=== PATIENT | female | born 1960 | race Caucasian/White ===

== ENCOUNTER 2017-01-18 11:08 | Inpatient (IN) | payer OTHER ==
[~2017-01-18 11:08] MED LIST: Sodium Citrate/Citric Acid* 15 ML UDC PO ONE
[2017-01-18] MEDS ORDERED: Sodium Citrate/Citric Acid* 15 ML UDC ONE (11:52)
[2017-01-18] MEDS ORDERED: Clindamycin 900 MG IVPREMIX(* 900 MG/50 ML SDV IV ONE (11:52)
[2017-01-18] MEDS ORDERED: Heparin VIAL(*) 5000 UNITS/ML VIAL (FIVE THOUSAND) ONE (11:52)
[2017-01-18] MEDS ORDERED: Buffered Lidocaine 1% SYRIN* 5 ML/SYR SYRINGE ONE (11:53)
[2017-01-18] MEDS ORDERED: DiMENhydriNATE IV* 50 MG/ML VIAL IV PUSH PRN (13:16)
[2017-01-18] MEDS ORDERED: fentaNYL* 50 MCG/ML 2 ML VIAL (100 MCG VIAL) IV PRN (13:16)
[2017-01-18] MEDS ORDERED: Bupivacaine 0.25% SDV* 30 ML ONE (13:25)
[2017-01-18] MEDS ORDERED: fentaNYL* 50 MCG/ML 2 ML VIAL (100 MCG VIAL) ONE ×3 (13:26→18:14)
[2017-01-18] MEDS ORDERED: Lidocaine 1% INJ* 10 MG/ML 30 ML SDV ONE (13:26)
[2017-01-18] MEDS ORDERED: Propofol* 10 MG/ML 20 ML BTL IV PUSH ONE (13:28)
[2017-01-18] MEDS ORDERED: Lidocaine 2% PF * 5 ML VIAL ONE (13:28)
[2017-01-18] MEDS ORDERED: Midazolam* 1 MG/ML 2 ML VIAL (2 MG) ONE ×2 (14:31→15:07)
--- NOTE | 2017-01-18 16:20 | RAD ---
INDICATION: Power port placement. COMPARISON: Comparison is made with a prior chest x-ray study from February 06, 2010. TECHNIQUE: 38 seconds of intermittent fluoroscopic guidance were provided and 3 spot films of the chest were obtained in the operating room. FINDINGS: The films demonstrate placement of a PowerPort central venous catheter. On the last film the catheter tip projects over the region of the superior vena cava. IMPRESSION: INTRAOPERATIVE CONTROL FILMS. CPT II Codes: 6045F
[2017-01-18] MEDS ORDERED: Ondansetron INJ* 2 MG/ML VIAL IV PRN (16:58)
[2017-01-18] MEDS ORDERED: Docusate CAP* 100 MG PO PRN (16:58)
[2017-01-18] MEDS ORDERED: oxyCODONE/Acetamin 5/325 MG* TAB PO PRN (16:58)
[2017-01-18] MEDS ORDERED: Famotidine TAB* 20 MG PO PRN (17:04)
[2017-01-18] MEDS ORDERED: Albuterol HFA INHALER* 8 gm MDI INH PRN (17:04)
--- NOTE | 2017-01-18 17:41 | RAD ---
Indication: PowerPort insertion. Single frontal view of the chest performed at 1730 hours was reviewed. Comparison is made with previous exam dated January 16, 2017. No mediastinal shift is noted. Heart is of normal size and configuration. Lung johnson appear clear. Left-sided PowerPort is in place with the tip in the superior vena cava. No pneumothorax is noted. IMPRESSION: POWERPORT IN APPROPRIATE LOCATION. NO PNEUMOTHORAX IS NOTED.
[2017-01-18] MEDS: Clindamycin 900 MG IVPREMIX(* 900 MG/50 ML SDV IV SCH (20:14)
[2017-01-18] MEDS: Gabapentin CAP(*) 400 MG PO SCH (20:33)
[2017-01-18] MEDS: oxyCODONE/Acetamin 5/325 MG* TAB PO PRN (20:34)
[2017-01-18] MEDS: Mometasone 220 MCG MDI INH SCH (20:35)
[2017-01-18] MEDS ORDERED: Zolpidem TAB* 5 MG PO ONE (22:00)
[2017-01-19] MEDS: Clindamycin 900 MG IVPREMIX(* 900 MG/50 ML SDV IV SCH (02:03)
--- NOTE | 2017-01-19 04:51 | OP ---
[facility]: [facility] OPERATIVE REPORT: DATE OF OPERATION: 01/18/17 DATE OF : 60 SURGEON: Sarah Garcia MD MASSAGE COORDINATOR: NADIA Padilla PRE-OP DIAGNOSIS: Right breast cancer. POST-OP DIAGNOSIS: Right breast cancer. OPERATIVE PROCEDURE: PowerPort placement, right mastectomy, and axillary dissection. INDICATIONS: Ms. 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 She opted for the mastectomy, and completion axillary dissection was planned as well because it was anticipated she would need chemotherapy and plans were made for PowerPort placement as well. DESCRIPTION OF PROCEDURE: She was brought to the operating room, placed on the OR table in the supi ne position, and given general anesthesia. Attention was turned first to placing the PowerPort. Th e left chest was prepped and draped in the usual sterile fashion. Then, after infiltrated with loca l anesthetic using the Seldinger technique, a wire was placed into the left subclavian vein under fl uoroscopic visualization. A port pocket was then created by making an incision on the chest wall af ter infiltrated with local anesthetic and using cautery to create a pocket inferiorly. There was so me bleeding that was controlled with a combination of hemostasis and suture ligature. Once the pock et was of a size to accommodate the port, the catheter was tunneled from the pocket site to the wire exit site and then a dilator and introducer were placed over the wire into the subclavian vein unde r fluoroscopic visualization. Again, the wire and dilator were removed and then the catheter was ad vanced through the introducer into the superior vena cava under fluoroscopic visualization. The int roducer was then peeled away. The catheter was trimmed to an appropriate length and attached to the port. The port was inserted into the pocket and secured to the chest wall with 2-0 Surgipro stitch es. Then, its function was confirmed by flushing with saline and position was checked with fluorosc opy. Closure was accomplished with 3-0 Polysorb in subcutaneous layer and the skin was closed with 4-0 Surgipro in a subcuticular fashion. Again, the function was checked, this time with heparinized saline and found to be adequate. Steri-Strips and a dry sterile dressing were applied. All sponge and instrument counts were correct. Then, attention was turned to the right side. This side was prepped and draped in the usual sterile fashion and then an incision was made on a line that had been marked preoperatively in the superior breast. Subcutaneous tissue was developed with electrocautery to create a flap that extended from the sternum medially to the clavicle superiorly and the latissimus dorsi muscle laterally. Then, an inferior incision was made and then in similar fashion, flaps were developed medially to the sternu m, inferiorly to the rectus muscle, and laterally to the latissimus dorsi muscle. Once this was com plete, the breast was elevated off the chest wall using electrocautery from superior to inferior and medial to lateral until the axillary fat pad was reached and dissection of the axilla was accomplis hed. This was done by sweeping the axillary contents posteriorly from the pectoralis muscle and inf eriorly from the axillary vein. Then, small lymphatic and blood vessels that were encountered were controlled with clips. The long thoracic nerve and thoracodorsal nerve were positively identified d uring the procedure. Once all the contents were swept inferiorly and final attachments were divided , the specimen was removed from the chest wall and marked in the usual fashion and handed off. It s hould be mentioned that hemostasis was obtained with a combination of electrocautery and clips and t hat again the function of the long thoracic and thoracodorsal nerves were confirmed. The wound was irrigated with saline. A IVORY drain was placed under the flaps of the mastectomy site through a stab wound in the anterior axillary line and a second IVORY was placed in the axilla through a stab wound in the middle axillary line. These were secured to the chest wall using 3-0 Surgipro stitches. Closu re of the incision was accomplished with 2-0 Polysorb in the subcutaneous layer of the skin was clos ed with 4-0 Polysorb in a subcuticular fashion. Local was instilled through the anterior drain and then Steri-Strips and dry fluffy dressing were applied and held in place with an Bryce wrap. All spon ge and instrument counts were correct. The patient tolerated the procedure well and was transferred to Recovery in a stable condition. [id number]/[facility] #: [id number]
[2017-01-19] MEDS: Levothyroxine TAB* 75 MCG TAB PO SCH (05:34)
[2017-01-19] MEDS: oxyCODONE/Acetamin 5/325 MG* TAB PO PRN ×4 (05:34→19:44)
[2017-01-19] MEDS: HYDROmorphone* 1 MG/ML 1 ML SYR IV PRN ×3 (08:32→22:09)
--- NOTE | 2017-01-19 08:32 | PN ---
Progress Note - Progress Note Note: Surgery Ms. Powers reports she is having some pain coming back despite pain pills 2 hours ago. Otherwise she denies problems. Vital Signs 01/18/17 01/18/17 01/18/17 12:06 17:05 17:10 Temperature 96.8 F 97.0 F Pulse Rate 88 111 111 Respiratory 16 18 20 Rate Blood Pressure 139/76 135/89 148/83 (mmHg) O2 Sat by Pulse 96 94 94 Oximetry 01/18/17 01/18/17 01/18/17 17:15 17:30 17:45 Temperature Pulse Rate 111 104 101 Respiratory 16 16 14 Rate Blood Pressure 138/78 122/73 119/74 (mmHg) O2 Sat by Pulse 97 93 97 Oximetry 01/18/17 01/18/17 01/18/17 18:00 18:15 18:30 Temperature 97.3 F Pulse Rate 99 100 101 Respiratory 14 14 16 Rate Blood Pressure 118/73 126/74 129/77 (mmHg) O2 Sat by Pulse 96 96 97 Oximetry 01/18/17 01/18/17 01/18/17 18:46 19:11 20:00 Temperature 97.3 F 98.0 F Pulse Rate 99 100 Respiratory 18 17 17 Rate Blood Pressure 127/72 124/78 (mmHg) O2 Sat by Pulse 96 96 Oximetry 01/18/17 01/18/17 01/18/17 20:23 20:33 20:34 Temperature 98.9 F Pulse Rate 103 Respiratory 16 17 17 Rate Blood Pressure 124/74 (mmHg) O2 Sat by Pulse 92 Oximetry 01/18/17 01/18/17 01/18/17 21:08 22:33 22:40 Temperature 98.0 F 98.0 F Pulse Rate 102 100 Respiratory 16 16 17 Rate Blood Pressure 116/67 124/78 (mmHg) O2 Sat by Pulse 94 96 Oximetry 01/18/17 01/19/17 01/19/17 23:52 01:17 03:44 Temperature 97.7 F 98.4 F 97.5 F Pulse Rate 102 102 92 Respiratory 16 16 16 Rate Blood Pressure 137/84 107/64 141/71 (mmHg) O2 Sat by Pulse 93 94 96 Oximetry 01/19/17 05:34 Temperature Pulse Rate Respiratory 17 Rate Blood Pressure (mmHg) O2 Sat by Pulse Oximetry Mastectomy site is clean and dry; no signs infection; flaps viable. JPs: serosanguinous fluid. Intake & Output 01/18/17 01/19/17 01/19/17 22:59 06:59 14:59 Intake Total 3760 2094 Output Total 435 450 Balance 3325 1644 Intake: IV Fluids 3350 684 LR 3000 IVPB 50 50 Oral 360 1360 Output: IVORY #1 145 85 IVORY #2 40 15 Urine 350 [place] 250 Other: Estimated Void Small Medium Estimated Blood Loss 200 Comment # Voids 1 A/P: POD#1 s/p right mastectomy and axillary dissection. Pain control may require more time in the hospital. She will reassess herself after lunch, and decide if she can manage without IV pain meds by then. Sally
[2017-01-19] MEDS: Venlafaxine EXT RELEASE CAP* 75 MG PO SCH (09:40)
[2017-01-19] MEDS: Divalproex DR TAB(*) 500 MG PO SCH (09:41)
[2017-01-19] MEDS: Cetirizine* 10 MG TAB PO SCH (09:41)
[2017-01-19] MEDS: Metoprolol Succinate XL TAB* 50 MG PO SCH (09:41)
[2017-01-19] MEDS ORDERED: oxyCODONE/Acetamin 5/325 MG* TAB PO PRN (15:01)
[2017-01-19] MEDS: Gabapentin CAP(*) 400 MG PO SCH (21:06)
[2017-01-19] MEDS: Mometasone 220 MCG MDI INH SCH (21:07)
[2017-01-20] MEDS: oxyCODONE/Acetamin 5/325 MG* TAB PO PRN ×3 (00:05→09:50)
[2017-01-20] MEDS: HYDROmorphone* 1 MG/ML 1 ML SYR IV PRN (03:20)
[2017-01-20] MEDS: Levothyroxine TAB* 75 MCG TAB PO SCH (07:22)
[2017-01-20 07:57] VITALS: BP 128/84
[2017-01-20] MEDS: Divalproex DR TAB(*) 500 MG PO SCH (08:59)
[2017-01-20] MEDS: Venlafaxine EXT RELEASE CAP* 75 MG PO SCH (09:00)
[2017-01-20] MEDS: Metoprolol Succinate XL TAB* 50 MG PO SCH (09:00)
[2017-01-20] MEDS: Cetirizine* 10 MG TAB PO SCH (09:00)
--- NOTE | 2017-01-20 11:15 | PN ---
Progress Note - Progress Note Note: Robert Ms. Powers reports she feels better, her pain is under control now. She is anxious to go home. She is dressed. Vital Signs 01/19/17 01/19/17 01/19/17 11:26 12:32 13:07 Temperature 97.6 F Pulse Rate 91 Respiratory 16 16 16 Rate Blood Pressure 120/70 (mmHg) O2 Sat by Pulse 93 Oximetry 01/19/17 01/19/17 01/19/17 13:32 15:23 15:28 Temperature 98.0 F Pulse Rate 88 Respiratory 16 16 16 Rate Blood Pressure 133/72 (mmHg) O2 Sat by Pulse 95 Oximetry 01/19/17 01/19/17 01/19/17 16:24 17:23 19:30 Temperature Pulse Rate Respiratory 16 16 Rate Blood Pressure (mmHg) O2 Sat by Pulse 95 Oximetry 01/19/17 01/19/17 01/19/17 19:32 19:44 21:06 Temperature 98.2 F Pulse Rate 84 Respiratory 16 16 16 Rate Blood Pressure 114/69 (mmHg) O2 Sat by Pulse 91 Oximetry 01/19/17 01/19/17 01/19/17 21:44 22:09 23:06 Temperature Pulse Rate Respiratory 16 16 16 Rate Blood Pressure (mmHg) O2 Sat by Pulse Oximetry 01/20/17 01/20/17 01/20/17 00:05 00:07 02:05 Temperature 98.2 F Pulse Rate 102 Respiratory 18 18 16 Rate Blood Pressure 129/78 (mmHg) O2 Sat by Pulse 93 Oximetry 01/20/17 01/20/17 01/20/17 03:10 03:20 05:06 Temperature 98.7 F Pulse Rate 102 Respiratory 16 16 18 Rate Blood Pressure 157/88 (mmHg) O2 Sat by Pulse 92 Oximetry 01/20/17 01/20/17 01/20/17 07:06 07:48 08:00 Temperature 97.9 F Pulse Rate 92 Respiratory 16 18 Rate Blood Pressure 128/84 (mmHg) O2 Sat by Pulse 95 Oximetry 01/20/17 09:50 Temperature Pulse Rate Respiratory 18 Rate Blood Pressure (mmHg) O2 Sat by Pulse Oximetry Power port site: clean and dry Mastectomy: not examined JPs: mainly serous fluid. Intake & Output 01/19/17 01/20/17 01/20/17 22:59 06:59 14:59 Intake Total 960 1240 Output Total 240 1223 332 Balance 720 17 -332 Intake: Oral 960 1240 Output: IVORY #1 180 250 132 IVORY #2 60 23 Urine 500 200 [place] 450 Other: Estimated Void Small Small # Voids 2 A/P: POD#2 s/p right mastectomy and axillary dissection and power port placement. Doing well and can go home and f/u as outpt. CLFoster
--- NOTE | 2017-01-20 16:26 | DS ---
DISCHARGE SUMMARY: DATE OF ADMISSION: 01/19/17 DATE OF DISCHARGE: 01/20/17 ADMISSION DIAGNOSIS: Right breast cancer. DISCHARGE DIAGNOSIS: Right breast cancer. PROCEDURES DURING THE HOSPITALIZATION: Mastectomy done on the day prior to actual admission. She underwent mastectomy and was prepared for an overnight stay, but on first postoperative day, had pain too much for discharge home on oral pain control. She was therefore kept overnight where she could receive IV pain control if needed and over the course of the next 24 hours, improved to the point that she was relying only on oral medications. She was examined during her hospitalization and the mastectomy site was intact as was the PowerPort site. She was therefore considered stable for discharge and was discharged to home with instructions to follow up as an outpatient. [id number]/[facility] #: [id number] XUAN
== END 2017-01-20 12:22 | disposition home or self-care (01) | DRG 362 ==
LOC: OR 11:08 → SSU 16:58 → OBSVTOIN 01-19 15:06
PROVIDERS: ADMIT Surgery; ATTEND Surgery
PROC: 0JH60VZ Insertion of Infusion Pump into Chest Subcutaneous Tissue and Fascia, Open Approach (ICD-10-PCS; 2017-01-18)
PROC: 0HTT0ZZ Resection of Right Breast, Open Approach (ICD-10-PCS; principal; 2017-01-18 13:15)
PROC: 07T50ZZ Resection of Right Axillary Lymphatic, Open Approach (ICD-10-PCS; 2017-01-18 13:15)
DX: C50.411 Malignant neoplasm of upper-outer quadrant of right female breast (principal); F25.9 Schizoaffective disorder, unspecified; I10 Essential (primary) hypertension; G89.18 Other acute postprocedural pain; E03.9 Hypothyroidism, unspecified; F31.9 Bipolar disorder, unspecified; G43.909 Migraine, unspecified, not intractable, without status migrainosus; J45.909 Unspecified asthma, uncomplicated; E78.1 Pure hyperglyceridemia; K21.9 Gastro-esophageal reflux disease without esophagitis; Z79.1 Long term (current) use of non-steroidal anti-inflammatories (NSAID); Z79.899 Other long term (current) drug therapy; Z88.0 Allergy status to penicillin; Z88.2 Allergy status to sulfonamides; Z88.8 Allergy status to other drugs, medicaments and biological substances; Z91.041 Radiographic dye allergy status
CPT/HCPCS: 71010; 88309; 94760; A9270-GY; C1788; G0378; J1170; J1642; J1644; J2001; J2250; J2405; J2704; J3010

== ENCOUNTER 2017-12-20 15:34 | Emergency (ER) | payer OTHER ==
--- OUTSIDE RECORDS SUMMARY | 2017-12-20 16:35 | XMS REPORT ---
:1960 External Reference #:[id number] Author Organization [facility] Address [address] [facility] [address] [place] [address] Phone [phone] Care Team Providers Name Role Phone Breanna Prieto MD Primary Care Physician Unavailable Payers Type Date Identification Numbers Payment Provider Subscriber Commercial Effective: Policy Number: [id number] [employer] Nery Powers 2004 Medicaid PayID: [id number] [address] [address] [place] [address] Problems Date Description Provider Status Onset: 09/10/2011 Gastroesophageal reflux disease Kev Larry M.D. Active Onset: 09/10/2011 Hypothyroidism Kev Larry M.D. Active Onset: 12/25/2011 Pure hyperglyceridemia Kev Larry M.D. Active Onset: 12/25/2011 Allergic rhinitis due to pollen Kev Larry M.D. Active Onset: 05/13/2012 Migraine variants, not intractable Kev Larry M.D. Active Onset: 05/13/2012 Bipolar disorder Breanna Prieto M.D. Active Onset: 05/13/2012 Extrinsic asthma without status Kev Larry M.D. Active asthmaticus Onset: 05/13/2012 Chronic schizoaffective Valeria Saucedo, Active schizophrenia Rosamaria Onset: 05/13/2012 Essential hypertension Kev Larry M.D. Active Onset: 01/07/2014 Menopausal and postmenopausal Bari Penn, Active disorders Rosamaria,FACP Onset: 11/26/2016 Infiltrating duct carcinoma of Breanna Prieto M.D. Active breast Onset: 09/05/2011 Otalgia Landon Sweeney M.D. Inactive Inactive: 01/07/2014 Onset: 09/10/2011 Asthma without status asthmaticus Kev Larry M.D. Inactive Inactive: 01/07/2014 Onset: 12/25/2011 Chest pain Kev Larry M.D. Inactive Inactive: 01/07/2014 Onset: 05/13/2012 Allergic rhinitis Kev Larry M.D. Inactive Inactive: 01/07/2014 Onset: 09/10/2011 Thrombocytopenic disorder Kev Larry M.D. Inactive Inactive: 05/13/2014 Onset: 06/15/2013 Atherosclerosis of arteries of the Mikhail Medardo Pleitez M.D., Inactive extremities FACC, FASNC Inactive: 05/13/2014 Onset: 07/20/2013 Neuralgia Neuritis & Kev Larry M.D. Inactive Radiculitis Unspec Inactive: 05/13/2014 Onset: 09/10/2011 Hyperlipidemia Kev Larry M.D. Inactive Inactive: 01/12/2015 Family History Date Family Member(s) Problem(s) Comments General Breast Cancer General mother probably had breast cancer at age 61 Father Hypertension Father Hypercholesterolemia Mother due to Cancer () First Sister 44 as of 10/28/2009 Social History Type Date Description Comments Marital Status Single Marital Status Significant Other Lives With Alone Occupation Not Currently Working Cigarette Use Never Smoked Cigarettes ETOH Use consumes 1-2 glasses of wine per day ETOH Use Occasionally consumes wine Recreational Drug Use Never Used Drugs Smoking Patient has never smoked Daily Caffeine Consumes on average 1 cup of regular coffee per day Exercise Type/Frequency Does not exercise Currently Active Patient is currently not sexually active Condom Use Occasionally STD's No STD History STD's HSV1 STD's Chlamydia treated many yrs ago in 80's Sexual Hx text 4 partners in last 5 yrs , not sexually active since 2013 Allergies, Adverse Reactions, Alerts Date Description Reaction Status Severity Comments 10/20/2009 Sulfa active 10/20/2009 Penicillins active 10/20/2009 Monistat active 10/20/2009 Prozac active 11/26/2016 Dye active 11/26/2016 Prolixin active Medications Medication Date Status Form Strength Qnty SIG Indications Ordering Provider Triamcinolone 12/06 Active Cream 0.5% 30gm apply twice R21 Altaf Acetonide daily to the JEREMIAS Ernandez affected area Levothyroxine 10/28 Active Tablets 50mcg 60tab 1 by mouth E03.9 Breanna Sodium s every day Rosamaria Prieto Arnuity 10/22 Active Aerosol 200mcg/Ac 30uni once a day Breanna Ellipta t franchesca Prieto M.D. Fexofenadine 12/12 Active Tablets 180mg 90tab take one Breanna HCL s tablet by Conner mouth once M.D. daily as needed for allergies Xanax 12/10 Active Tablets 0.25mg 1tabs take 1 tab Breanna 30 min prior Conner to the M.DRichar procedure Nonce Daily 11/18 Active Tablets 30tab not Breanna /2014 s taking---lizz Rolon One Tablet M.D. By Mouth Once Daily Valacyclovir 01/07 Active Tablets 1gm 21tab Take 1 B00.9 Karen HCL s Tablet By Cotton, Mouth Every M.D. 8 Hours as Needed For 7 Days Ventolin HFA 01/05 Active Aerosol 108(90Bas 8.5un use two Landon E. /2012 e) its inhalations Zahra, mcg/Act by mouth M.D. four times daily as needed Toprol XL 05/13 Active Tablets ER 50mg 90tab take one G43.901 Breanna 24HR s tablet by Prieto, mouth once M.D. daily Depakote ER Active Tablets ER 500mg 28tab 4 tablets by Breanna / 24HR s mouth at hs Rosamaria Prieto Gabapentin Active Tablets 800mg 1 by mouth Unknown /0000 daily Mirtazapine Active Tablets 30mg 1 tab at Bezirgania /0000 night Zelalem gallagher MD Venlafaxine Active Tablets 75mg 3 by mouth Bezirgania HCL /0000 every day Zelalem gallagher MD Biotin Active Capsules 1 by mouth Unknown /0000 every day Remeron Active Tablets 30mg 1 tabs by Unknown /0000 mouth every at bedtime Lysine 00 Active Tablets as needed Unknown /0000 Acetaminophen Active Tablets 325mg 2 tablets by Unknown / mouth every 6 hours as needed for pain/fever Boost High Active Liquid 1-2 a day Unknown Protein Anastrozole Active Tablets 1mg one tab Unknown / daily Calcium + D3 Active Tablets 600-200mg Unknown -Unit Doxycycline 01/25 Hx Capsules 100mg 14cap 1 po bid C50.411 Fransico. Monohydrate /2016 unruly Em M.D. Cephalexin 01/02 Hx Capsules 500mg 21cap 1 by mouth Radha s three times B. a day Eckenrode, PATROL CAPTAIN Hydrocodone 01/02 Hx Tablets 5-300mg 14tab 1 tab by Radha Bitartrate/Bryce s mouth every B. taminophen 6 hours as Eckenrode, needed pain PATROL CAPTAIN Levothyroxine 07/21 Hx Tablets 75mcg 90tab 1 by mouth E03.9 Breanna Sodium /2014 s every day Yuri Prieto M.D. 10/28 Nyamyc 01/13 Hx Powder [id number] 100gm apply to Breanna t/GM s affected Conner - area twice a M.DRichar 08/23 day x days as needed Venlafaxine 01/12 Hx Caps ER 150mg 30cap 1 by mouth Breanna HCL ER /2014 24HR s every day Yuri Prieto M.D. 08/23 Fluticasone 02/12 Hx Suspension 50mcg/Act 1unit 2 sprays 461.9 Nery Propionate s each nostril ewa Gottlieb M.D. Benzonatate 02/12 Hx Capsules 100mg 30cap 1 by mouth 493.00 Nery /2013 s 3x per day Yuri Gottlieb M.D. 05/13 Magnesium 07/22 Hx Tablets 400mg 15tab take Breanna Oxide s one-half darrell Prieto by Rosamaria mouth twice daily Fish Oil 07/21 Hx Capsules 1000mg 90cap 1 po qd Yuri Diaz M.D. 07/21 Magnesium 07/21 Hx Tablets 200mg 90tab 1 po qd Yuri Diaz M.D. 07/22 Fish 07/21 Hx Capsules [id number] 90cap 1 po qd [place] Oil/Vitamin D mg-Unit Yuri Diaz M.D. 08/17 Fexofenadine 04/14 Hx Tablets 180mg 14tab take one Breanna HCL s tablet by Conner, - mouth once M.D. 11/22 daily needed for allergies [id number] 11/19 Hx Tab 500mcg 1 po qd Yuri Larry M.D. 06/15 Magnesium 11/19 Hx Tab 2 po qd Yuri LarryDRichar 07/21 L-Lysine 11/19 Hx Tablets 500mg 90tab 1 po qd Yuri Diaz M.D. 08/17 Multivital 11/19 Hx Tablets 90tab 1 by mouth s once daily Yuri Prieto M.D. 08/23 Fish Oil 11/19 Hx Gummy 1 po qd Yuri Larry M.D. 07/21 Sumatriptan 05/15 Hx Tablets 50mg 9tabs take 1 Breanna Succinate tablet by Conner, mouth at M.D. onset of headache, may repeat after 2 hours Loratadine 03/12 Hx Tablets 10mg 30tab 1 po qd Yuri Beckett M.D. 04/01 Omeprazole 03/[address] 40mg 30cap Take One s Capsule By Conner, - Mouth Once M.D. 11/22 Proair HFA 12/25 Hx Aerosol 108(90Bas 1unit 2 puffs po e) mcg/ac s q4h prn Yuri Larry M.D. 01/05 Toprol XL 12/24 Hx Tablets ER 25mg 30tab 1 po qd 346.92 24HR Yuri Diaz M.D. 05/13 Singulair 12/24 Hx Tablets 10mg 30tab 1 po qd 477.0 Yuri Diaz M.D. 04/14 Pulmicort 10/03 Hx Aerosol 180mcg/Ac 1unit use two Breanna Flexhaler /2011 t s inhalations Conner, - two times M.DRichar 10/22 daily Asmanex 120 01/24 Hx Aerosol 220mcg/In 1unit 2 puffs qd 493.00 Landon E. Metered Doses h Yuri Bassett M.D. 10/03 Imitrex 01/04 Hx Tablets 100mg 10tab 1 tab at Landon E. s first sign Zahra, - of headache. M.DRichar 12/24 in 2hrs if needed Zithromax 12/13 Hx Tablets 250mg 1tabs 2tab today 464.00 [place] Z- and 1tab Laron - daily x M.DRichar 01/04 4d Claritin 08/09 Hx Tablets 10mg 30tab once daily 477.9 Landon ERichar Yuri Bassett M.D. 04/01 Protonix 12/[address] 40mg 30tab po qday PA# 296.80 s [id number] Yuri Larry M.D. 05/13 Claritin-D 12 10/20 Hx Tablets ER 5-120mg 60tab 1 po bid 296.80 Landon ERichar 12HR Yuri Bassett M.D. 08/09 Detrol LA 10/20 Hx Caps ER 2mg 30cap 1 po qd 596.59 24HR Yuri Diaz M.D. 09/05 Pepcid 10/20 Hx Tablets 40mg 30tab 1 tab po 530.81 s daily Valeria - M.D. 08/09 Imitrex 10/20 Hx Tablets 100mg 54tab q2h prn mdd2 laila s Valeria - M.D. 12/13 Lexapro Hx Tablets 20mg 7tabs 1 by mouth Breanna / every day Yuri Prieto M.D. 01/12 Seroquel Hx Tablets 200mg 30tab daily Unknown / s - 12/24 Claritan 00/ Hx 40mg daily Unknown /0000 - 10/20 Synthroid 00 Hx Tablets 50mcg 30tab 1 po qd 244.9 Breanna /0000 s Yuri Prieto M.D. 09/04 Asmanex Hx 22mcg 1unit 2 puffs qd 493.00 Landon E. /0000 s Yuri Sweeney M.D. 01/24 Maxair Hx Aerosol 200mcg/In 1unit 2 puffs po q 493.00 Kev Autolynnette /0000 h s 4-6 hrs. prn Yuri Larry M.D. 12/25 Lamictal Hx Tablets ER 100mg 1 po qd Unknown /0000 24HR - 07/30 Hydrocodone/Ac Hx Tablets 5-500mg 20tab one po Unknown etaminophen /0000 s every 4 - hours prn 05/13 Levothyroxine Hx Tablets 50mcg 30tab Take One 244.9 Pachikara, Sodium /0000 s Tablet By MD Kev - Mouth Once 09/06 Benadryl Hx Capsules 25mg 30cap 1 po at hs Unknown /0000 s - 06/15 Aspirin Hx daily Unknown /0000 (dosage - unknown) 07/20 Gabapentin Hx Tablets 600mg 7tabs 1 tab by Breanna /0000 mouth every Prieto, - day at M.D. 01/12 bedtime directed Vitamin D3 Hx Capsules 1000Unit 2 once a day Unknown High Potency /0000 Levothyroxine Hx Tablets 50mcg 30tab Take One E03.9 Breanna Sodium /0000 s Tablet By Conner, - Mouth Once M.D. 07/21 Vitamin D-3 Hx Capsules 2000Unit 1 by mouth Unknown /0000 every day - 09/03 Medications Administered in Office Medication Date Status Form Strength Qnty SIG Indications Ordering Provider Inj, Administered Injection Mikhail Batres Regadenoson, 013 Maik, 0.1 MG Rosamaria, FACRio, STACEY Technetium TC Administered Injection Mikhail Batres 99M Xena Herrera M.D., [facility], Per Unit Dose FASNC Up To 40 Millicuries Immunizations CPT Code Status Date Vaccine Lot # [id number] Given 08/23/2016 Influenza Virus Vaccine, Quadrivalent, Split [id number] Virus[place] [id number] Given 01/12/2015 Tdap - Tetanus/Diptheria/Acellular Pertussis [id number] 70183 Given 01/12/2015 Pneumococcal Conjugate Vaccine 13 Valent For [id number] Intramuscular Use 48395 Given 08/05/2014 Flu Vaccine Split Virus Preservative Free For [id number] Indiv 3Yr Older 99382 Given 01/07/2014 Pneumonia Vaccine [id number] 89885 Given 07/20/2013 Flu Vaccine Split Virus Preservative Free For [id number] Indiv 3Yr Older [id number] Given 05/13/2012 Fluzone Vaccine [id number] 40274 Given 09/05/2011 Influenza Virus 3Yrs & Over [id number] Vital Signs Date Vital Result Comment 12/06/2017 Weight 238.50 lb Heart Rate 94 /min BP Systolic 110 mmHg BP Diastolic 72 mmHg Body Temperature 96.9 F O2 % BldC Oximetry 94 % 09/25/2017 Heart Rate 78 /min Respiratory Rate 16 /min Body Temperature 97.7 F 09/17/2017 Heart Rate 62 /min Respiratory Rate 16 /min 09/03/2017 Weight 246.00 lb Heart Rate 90 /min BP Systolic Sitting 124 mmHg BP Diastolic Sitting 78 mmHg O2 % BldC Oximetry 93 % denies SOB 08/19/2017 Weight 234.00 lb Heart Rate 80 /min BP Systolic 126 mmHg BP Diastolic 82 mmHg Respiratory Rate 16 /min Body Temperature 97.5 F 02/13/2017 Heart Rate 78 /min Respiratory Rate 16 /min Body Temperature 98.2 F 02/01/2017 Heart Rate 96 /min Respiratory Rate 18 /min Body Temperature 97.7 F 01/29/2017 Heart Rate 90 /min Respiratory Rate 20 /min Body Temperature 98.5 F 01/25/2017 Heart Rate 74 /min Respiratory Rate 16 /min Body Temperature 98.7 F 01/15/2017 Weight 240.00 lb Heart Rate 86 /min BP Systolic Sitting 130 mmHg BP Diastolic Sitting 84 mmHg Respiratory Rate 15 /min Body Temperature 98.0 F O2 % BldC Oximetry 98 % 01/14/2017 Heart Rate 78 /min BP Systolic 132 mmHg BP Diastolic 80 mmHg Respiratory Rate 16 /min Body Temperature 97.1 F 01/08/2017 Weight 236.00 lb Heart Rate 96 /min BP Systolic Sitting 132 mmHg BP Diastolic Sitting 84 mmHg Respiratory Rate 15 /min Body Temperature 98.1 F O2 % BldC Oximetry 98 % 01/02/2017 Height 67 inches 5'7" Weight 230.00 lb Heart Rate 84 /min BP Systolic 128 mmHg BP Diastolic 78 mmHg Respiratory Rate 16 /min Body Temperature 98.1 F BMI (Body Mass Index) 36.0 kg/m2 11/26/2016 Height 67 inches 5'7" Weight 230.00 lb Heart Rate 78 /min BP Systolic 132 mmHg BP Diastolic 86 mmHg Respiratory Rate 18 /min Body Temperature 97.2 F BMI (Body Mass Index) 36.0 kg/m2 11/22/2016 Height 67 inches 5'7" Weight 230.00 lb Heart Rate 94 /min BP Systolic Sitting 130 mmHg BP Diastolic Sitting 82 mmHg Respiratory Rate 16 /min O2 % BldC Oximetry 97 % BMI (Body Mass Index) 36.0 kg/m2 08/23/2016 Height 67 inches 5'7" Weight 214.00 lb Heart Rate 108 /min BP Systolic Sitting 120 mmHg BP Diastolic Sitting 70 mmHg Body Temperature 98.2 F O2 % BldC Oximetry 97 % BMI (Body Mass Index) 33.5 kg/m2 01/12/2015 Height 67.25 inches 5'7.25" Weight 231.00 lb Heart Rate 85 /min BP Systolic 126 mmHg BP Diastolic 81 mmHg Body Temperature 97.8 F BMI (Body Mass Index) 35.9 kg/m2 05/13/2014 Weight 223.00 lb Heart Rate 68 /min BP Systolic Sitting 126 mmHg BP Diastolic Sitting 80 mmHg 02/12/2014 Weight 224.00 lb Heart Rate 78 /min BP Systolic Sitting 110 mmHg BP Diastolic Sitting 64 mmHg Body Temperature 98.7 F O2 % BldC Oximetry 98 % 01/07/2014 Weight 221.00 lb Heart Rate 80 /min BP Systolic Sitting 100 mmHg BP Diastolic Sitting 58 mmHg Body Temperature 97.6 F 08/17/2013 Height 67.25 inches 5'7.25" Weight 215.00 lb Heart Rate 78 /min BP Systolic Sitting 100 mmHg BP Diastolic Sitting 64 mmHg BMI (Body Mass Index) 33.4 kg/m2 07/20/2013 Height 67.25 inches 5'7.25" Weight 215.50 lb Heart Rate 80 /min BP Systolic Sitting 102 mmHg BP Diastolic Sitting 50 mmHg BMI (Body Mass Index) 33.5 kg/m2 06/15/2013 Height 68.5 inches 5'8.50" Weight 208.00 lb 3 Lbs decrease 03/30/13 Heart Rate 82 /min BP Systolic Sitting 118 mmHg Left arm, reg cuff BP Diastolic Sitting 74 mmHg Left arm, reg cuff BP Systolic Standing 112 mmHg BP Diastolic Standing 74 mmHg Respiratory Rate 18 /min BMI (Body Mass Index) 31.2 kg/m2 03/09/2013 Weight 210.00 lb Heart Rate 78 /min BP Systolic Sitting 110 mmHg BP Diastolic Sitting 72 mmHg Body Temperature 98.4 F 11/19/2012 Height 67 inches 5'7" Weight 218.50 lb Heart Rate 78 /min BP Systolic Sitting 120 mmHg BP Diastolic Sitting 78 mmHg BMI (Body Mass Index) 34.2 kg/m2 07/30/2012 Height 67 inches 5'7" Weight 220.00 lb Heart Rate 82 /min BP Systolic Sitting 118 mmHg BP Diastolic Sitting 80 mmHg O2 % BldC Oximetry 98 % BMI (Body Mass Index) 34.5 kg/m2 05/13/2012 Height 67 inches 5'7" Weight 218.00 lb Heart Rate 81 /min BP Systolic Sitting 112 mmHg BP Diastolic Sitting 76 mmHg BMI (Body Mass Index) 34.1 kg/m2 04/01/2012 Height 67 inches 5'7" Weight 219.00 lb Heart Rate 80 /min BP Systolic Sitting 104 mmHg BP Diastolic Sitting 80 mmHg O2 % BldC Oximetry 91 % BMI (Body Mass Index) 34.3 kg/m2 12/25/2011 Height 67 inches 5'7" Weight 226.75 lb Heart Rate 90 /min BP Systolic Sitting 114 mmHg BP Diastolic Sitting 80 mmHg BMI (Body Mass Index) 35.5 kg/m2 10/01/2011 Height 67 inches 5'7" Weight 228.00 lb Heart Rate 80 /min BP Systolic Sitting 148 mmHg l BP Diastolic Sitting 88 mmHg l BMI (Body Mass Index) 35.7 kg/m2 09/05/2011 Height 67 inches 5'7" Weight 231.00 lb Heart Rate 104 /min BP Systolic Sitting 120 mmHg BP Diastolic Sitting 90 mmHg BMI (Body Mass Index) 36.2 kg/m2 04/04/2011 Weight 228.00 lb Heart Rate 80 /min BP Systolic Sitting 106 mmHg BP Diastolic Sitting 76 mmHg 12/13/2010 Weight 225.00 lb Heart Rate 70 /min BP Systolic Sitting 116 mmHg BP Diastolic Sitting 80 mmHg Body Temperature 97.2 F lt ear 08/09/2010 Weight 233.00 lb Heart Rate 113 /min BP Systolic Sitting 126 mmHg BP Diastolic Sitting 82 mmHg O2 % BldC Oximetry 95 % 12/22/2009 Weight 228.00 lb Heart Rate 98 /min BP Systolic Sitting 128 mmHg BP Diastolic Sitting 80 mmHg O2 % BldC Oximetry 93 % 11/21/2009 Weight 229.00 lb Heart Rate 100 /min BP Systolic Sitting 122 mmHg BP Diastolic Sitting 82 mmHg 10/20/2009 Height 67.5 inches 5'7.50" Weight 222.50 lb Heart Rate 102 /min BP Systolic Sitting 144 mmHg BP Diastolic Sitting 96 mmHg BMI (Body Mass Index) 34.3 kg/m2 Results Test Date Test Result H/L Range Note Laboratory test finding 10/25/2017 TSH (Thyroid Stim 2.67 mcIU/mL 0.34- 5.60 Horm) T3 Free 7.40 pg/mL High 2.5-3.9 Free T4 (Free Thyroxine) 2.03 ng/dL High 0.61-1.12 Basic Metabolic Panel 10/25/2017 Sodium 134 mmol/L 133-145 Potassium 4.4 mmol/L 3.5-5.0 Chloride 97 mmol/L Low 101-111 Co2 Carbon Dioxide 30 mmol/L 22-32 Anion Gap 7 mmol/L 2-11 Glucose 92 mg/dL 70-100 Blood Urea Nitrogen 16 mg/dL 6-24 Creatinine 0.70 mg/dL 0.51-0.95 BUN/Creatinine Ratio 22.9 High 8-20 Calcium 10.4 mg/dL High 8.6-10.3 Egfr Non- 86.2 >60 Egfr 110.9 >60 1 CBC Auto Diff 05/07/2017 White Blood Count 7.3 10^3/uL 3.5-10.8 Red Blood Count 3.93 10^6/uL Low 4.0-5.4 Hemoglobin 11.5 g/dL Low 12.0-16.0 Hematocrit 35 % 35-47 Mean Corpuscular Volume 89 fL 80-97 Mean Corpuscular Hemoglobin 29 pg 27-31 Mean Corpuscular HGB Conc 33 g/dL 31-36 Red Cell Distribution Width 22 % High 10.5-15 Platelet Count 245 10^3/uL 150-450 Mean Platelet Volume 8 um3 7.4-10.4 Abs Neutrophils 4.5 10^3/uL 1.5-7.7 Abs Lymphocytes 1.8 10^3/uL 1.0-4.8 Abs Monocytes 1.0 10^3/uL High 0-0.8 Abs Eosinophils 0 10^3/uL 0-0.6 Abs Basophils 0.1 10^3/uL 0-0.2 Abs Nucleated RBC 0 10^3/uL Granulocyte % 61.0 % 38-83 Lymphocyte % 24.1 % Low 25-47 Monocyte % 13.0 % High 1-9 Eosinophil % 0.6 % 0-6 Basophil % 1.3 % 0-2 Nucleated Red Blood Cells % 0 Comp Metabolic Panel 05/07/2017 Sodium 139 mmol/L 133-145 Potassium 4.1 mmol/L 3.5-5.0 Chloride 105 mmol/L 101-111 Co2 Carbon Dioxide 27 mmol/L 22-32 Anion Gap 7 mmol/L 2-11 Glucose 99 mg/dL 70-100 Blood Urea Nitrogen 14 mg/dL 6-24 Creatinine 0.65 mg/dL 0.51-0.95 BUN/Creatinine Ratio 21.5 High 8-20 Calcium 9.4 mg/dL 8.6-10.3 Total Protein 6.4 g/dL 6.4-8.9 Albumin 3.8 g/dL 3.2-5.2 Globulin 2.6 g/dL 2-4 Albumin/Globulin Ratio 1.5 1-3 Total Bilirubin 0.30 mg/dL 0.2-1.0 Alkaline Phosphatase 83 U/L 34-104 Alt 13 U/L 7-52 Ast 22 U/L 13-39 Egfr Non- 94.3 >60 Egfr 121.3 >60 2 CBC Auto Diff 04/22/2017 White Blood Count 11.2 10^3/uL High 3.5-10.8 Red Blood Count 3.69 10^6/uL Low 4.0-5.4 Hemoglobin 10.6 g/dL Low 12.0-16.0 Hematocrit 32 % Low 35-47 Mean Corpuscular Volume 88 fL 80-97 Mean Corpuscular Hemoglobin 29 pg 27-31 Mean Corpuscular HGB Conc 33 g/dL 31-36 Red Cell Distribution Width 20 % High 10.5-15 Platelet Count 218 10^3/uL 150-450 Mean Platelet Volume 8 um3 7.4-10.4 Abs Neutrophils 8.5 10^3/uL High 1.5-7.7 Abs Lymphocytes 1.3 10^3/uL 1.0-4.8 Abs Monocytes 1.3 10^3/uL High 0-0.8 Abs Eosinophils 0.1 10^3/uL 0-0.6 Abs Basophils 0.1 10^3/uL 0-0.2 Abs Nucleated RBC 0.14 10^3/uL Granulocyte % 75.6 % 38-83 Lymphocyte % 11.6 % Low 25-47 Monocyte % 11.5 % High 1-9 Eosinophil % 0.6 % 0-6 Basophil % 0.7 % 0-2 Nucleated Red Blood Cells % 1.3 Manual Differential 04/22/2017 Immature Granulocytes 11 % High 0-9 Neutrophil % 63 % 38-83 Band % 3 % 0-8 Lymphocytes % 17 % Low 25-47 Monocytes % 9 % 0-13 Metamyelocytes % 3 % High 0-2 Myelocytes % 5 % High 0-1 Nucleated Red Blood Cells/100 1 High 0-0 RBC Morphology Normal Normal Manual Differential 04/08/2017 Immature Granulocytes 14 % High 0-9 Neutrophil % 60 % 38-83 Band % 6 % 0-8 Lymphocytes % 23 % Low 25-47 Monocytes % 3 % 0-13 Myelocytes % 8 % High 0-1 RBC Morphology Normal Normal CBC Auto Diff 04/08/2017 White Blood Count 12.6 10^3/uL High 3.5-10.8 Red Blood Count 4.20 10^6/uL 4.0-5.4 Hemoglobin 12.0 g/dL 12.0-16.0 Hematocrit 37 % 35-47 Mean Corpuscular Volume 88 fL 80-97 Mean Corpuscular Hemoglobin 29 pg 27-31 Mean Corpuscular HGB Conc 32 g/dL 31-36 Red Cell Distribution Width 18 % High 10.5-15 Platelet Count 267 10^3/uL 150-450 Mean Platelet Volume 8 um3 7.4-10.4 Abs Neutrophils 9.8 10^3/uL High 1.5-7.7 Abs Lymphocytes 1.7 10^3/uL 1.0-4.8 Abs Monocytes 1.0 10^3/uL High 0-0.8 Abs Eosinophils 0.1 10^3/uL 0-0.6 Abs Basophils 0 10^3/uL 0-0.2 Abs Nucleated RBC 0.10 10^3/uL Granulocyte % 78.1 % 38-83 Lymphocyte % 13.1 % Low 25-47 Monocyte % 7.7 % 1-9 Eosinophil % 0.7 % 0-6 Basophil % 0.4 % 0-2 Nucleated Red Blood Cells % 0.8 Comp Metabolic Panel 04/08/2017 Sodium 139 mmol/L 133-145 Potassium 4.3 mmol/L 3.5-5.0 Chloride 105 mmol/L 101-111 Co2 Carbon Dioxide 26 mmol/L 22-32 Anion Gap 8 mmol/L 2-11 Glucose 98 mg/dL 70-100 Blood Urea Nitrogen 17 mg/dL 6-24 Creatinine 0.63 mg/dL 0.51-0.95 BUN/Creatinine Ratio 27.0 High 8-20 Calcium 9.9 mg/dL 8.6-10.3 Total Protein 6.5 g/dL 6.4-8.9 Albumin 4.0 g/dL 3.2-5.2 Globulin 2.5 g/dL 2-4 Albumin/Globulin Ratio 1.6 1-3 Total Bilirubin 0.20 mg/dL 0.2-1.0 Alkaline Phosphatase 75 U/L 34-104 Alt 10 U/L 7-52 Ast 13 U/L 13-39 Egfr Non- 97.8 >60 Egfr 125.7 >60 3 CBC Auto Diff 03/25/2017 White Blood Count 9.6 10^3/uL 3.5-10.8 Red Blood Count 3.91 10^6/uL Low 4.0-5.4 Hemoglobin 11.3 g/dL Low 12.0-16.0 Hematocrit 35 % 35-47 Mean Corpuscular Volume 90 fL 80-97 Mean Corpuscular Hemoglobin 29 pg 27-31 Mean Corpuscular HGB Conc 32 g/dL 31-36 Red Cell Distribution Width 17 % High 10.5-15 Platelet Count 189 10^3/uL 150-450 Mean Platelet Volume 8 um3 7.4-10.4 Abs Neutrophils 6.7 10^3/uL 1.5-7.7 Abs Lymphocytes 1.9 10^3/uL 1.0-4.8 Abs Monocytes 0.8 10^3/uL 0-0.8 Abs Eosinophils 0 10^3/uL 0-0.6 Abs Basophils 0.1 10^3/uL 0-0.2 Abs Nucleated RBC 0.04 10^3/uL Granulocyte % 70.2 % 38-83 Lymphocyte % 19.8 % Low 25-47 Monocyte % 8.2 % 1-9 Eosinophil % 0.4 % 0-6 Basophil % 1.4 % 0-2 Nucleated Red Blood Cells % 0.4 CBC Auto Diff 03/11/2017 White Blood Count 9.9 10^3/uL 3.5-10.8 Red Blood Count 4.24 10^6/uL 4.0-5.4 Hemoglobin 12.2 g/dL 12.0-16.0 Hematocrit 38 % 35-47 Mean Corpuscular Volume 90 fL 80-97 Mean Corpuscular Hemoglobin 29 pg 27-31 Mean Corpuscular HGB Conc 32 g/dL 31-36 Red Cell Distribution Width 16 % High 10.5-15 Platelet Count 215 10^3/uL 150-450 Mean Platelet Volume 8 um3 7.4-10.4 Abs Neutrophils 7.3 10^3/uL 1.5-7.7 Abs Lymphocytes 1.9 10^3/uL 1.0-4.8 Abs Monocytes 0.5 10^3/uL 0-0.8 Abs Eosinophils 0.1 10^3/uL 0-0.6 Abs Basophils 0.1 10^3/uL 0-0.2 Abs Nucleated RBC 0.03 10^3/uL Granulocyte % 74.0 % 38-83 Lymphocyte % 19.5 % Low 25-47 Monocyte % 4.9 % 1-9 Eosinophil % 0.8 % 0-6 Basophil % 0.8 % 0-2 Nucleated Red Blood Cells % 0.3 Manual Differential 03/11/2017 Immature Granulocytes 7 % 0-9 Neutrophil % 61 % 38-83 Band % 3 % 0-8 Lymphocytes % 23 % Low 25-47 Monocytes % 8 % 0-13 Reactive Lymph % 1 % 0-6 Metamyelocytes % 4 % High 0-2 Nucleated Red Blood Cells/100 1 High 0-0 RBC Morphology Normal Normal Comp Metabolic Panel 03/07/2017 Sodium 138 mmol/L 133-145 Potassium 3.6 mmol/L 3.5-5.0 Chloride 106 mmol/L 101-111 Co2 Carbon Dioxide 26 mmol/L 22-32 Anion Gap 6 mmol/L 2-11 Glucose 100 mg/dL 70-100 Blood Urea Nitrogen 15 mg/dL 6-24 Creatinine 0.61 mg/dL 0.51-0.95 BUN/Creatinine Ratio 24.6 High 8-20 Calcium 9.2 mg/dL 8.6-10.3 Total Protein 6.4 g/dL 6.4-8.9 Albumin 3.7 g/dL 3.2-5.2 Globulin 2.7 g/dL 2-4 Albumin/Globulin Ratio 1.4 1-3 Total Bilirubin 0.20 mg/dL 0.2-1.0 Alkaline Phosphatase 70 U/L 34-104 Alt 13 U/L 7-52 Ast 18 U/L 13-39 Egfr Non- 101.5 >60 Egfr 130.5 >60 4 Laboratory test finding 03/07/2017 Magnesium 2.0 mg/dL 1.9-2.7 CBC Auto Diff 02/25/2017 White Blood Count 8.2 10^3/uL 3.5-10.8 Red Blood Count 4.16 10^6/uL 4.0-5.4 Hemoglobin 12.3 g/dL 12.0-16.0 Hematocrit 37 % 35-47 Mean Corpuscular Volume 88 fL 80-97 Mean Corpuscular Hemoglobin 30 pg 27-31 Mean Corpuscular HGB Conc 34 g/dL 31-36 Red Cell Distribution Width 16 % High 10.5-15 Platelet Count 215 10^3/uL 150-450 Mean Platelet Volume 8 um3 7.4-10.4 Abs Neutrophils 4.4 10^3/uL 1.5-7.7 Abs Lymphocytes 2.4 10^3/uL 1.0-4.8 Abs Monocytes 1.1 10^3/uL High 0-0.8 Abs Eosinophils 0.2 10^3/uL 0-0.6 Abs Basophils 0.1 10^3/uL 0-0.2 Abs Nucleated RBC 0.01 10^3/uL Granulocyte % 53.9 % 38-83 Lymphocyte % 29.6 % 25-47 Monocyte % 12.9 % High 1-9 Eosinophil % 2.1 % 0-6 Basophil % 1.5 % 0-2 Nucleated Red Blood Cells % 0.1 Comp Metabolic Panel 02/25/2017 Sodium 139 mmol/L 133-145 Potassium 3.8 mmol/L 3.5-5.0 Chloride 107 mmol/L 101-111 Co2 Carbon Dioxide 27 mmol/L 22-32 Anion Gap 5 mmol/L 2-11 Glucose 98 mg/dL 70-100 Blood Urea Nitrogen 17 mg/dL 6-24 Creatinine 0.59 mg/dL 0.51-0.95 BUN/Creatinine Ratio 28.8 High 8-20 Calcium 9.3 mg/dL 8.6-10.3 Total Protein 6.3 g/dL Low 6.4-8.9 Albumin 3.7 g/dL 3.2-5.2 Globulin 2.6 g/dL 2-4 Albumin/Globulin Ratio 1.4 1-3 Total Bilirubin 0.20 mg/dL 0.2-1.0 Alkaline Phosphatase 64 U/L 34-104 Alt 8 U/L 7-52 Ast 12 U/L Low 13-39 Egfr Non- 105.4 >60 Egfr 135.6 >60 5 Basic Metabolic Panel 01/15/2017 Sodium 137 mmol/L 133-145 6 Potassium 4.2 mmol/L 3.5-5.0 6 Chloride 103 mmol/L 101-111 6 Co2 Carbon Dioxide 27 mmol/L 22-32 6 Anion Gap 7 mmol/L 2-11 6 Glucose 94 mg/dL 70-100 6 Blood Urea Nitrogen 15 mg/dL 6-24 6 Creatinine 0.79 mg/dL 0.51-0.95 6 BUN/Creatinine Ratio 19.0 8-20 6 Calcium 9.4 mg/dL 8.6-10.3 6 Egfr Non- 75.3 >60 6 Egfr 96.8 >60 6, 7 CBC No Diff 01/15/2017 White Blood Count 10.3 10^3/uL 3.5-10.8 6 Red Blood Count 4.54 10^6/uL 4.0-5.4 6 Hemoglobin 13.3 g/dL 12.0-16.0 6 Hematocrit 41 % 35-47 6 Mean Corpuscular Volume 89 fL 80-97 6 Mean Corpuscular Hemoglobin 29 pg 27-31 6 Mean Corpuscular HGB Conc 33 g/dL 31-36 6 Red Cell Distribution Width 15 % 10.5-15 6 Platelet Count 212 10^3/uL 150-450 6 Mean Platelet Volume 9 um3 7.4-10.4 6 Laboratory test finding 01/08/2017 Cytology SEE RESULT BELOW 8 HPV Rna Ww/Reflex Genotype Negative Negative 9 Laboratory test finding 01/04/2017 Surgical Pathology SEE RESULT BELOW 10 Laboratory test finding 12/11/2016 Vitamin D Total 25(Oh) 31.9 ng/mL 30- 50 Laboratory test finding 11/26/2016 Cytology Non-Insurance Legal Assistant SEE RESULT BELOW 11 Surgical Pathology SEE RESULT BELOW 12 Laboratory test finding 08/23/2016 TSH (Thyroid Stim Horm) 2.22 mcIU/mL 0.34-5.60 T3 Free 3.20 pg/mL 2.5-3.9 Free T4 (Free Thyroxine) 0.89 ng/dL 0.61-1.12 Hepatitis C Antibody Nonreactive Nonreactive CBC Auto Diff 07/29/2016 White Blood Count 8.0 10^3/uL 3.5-10.8 Red Blood Count 4.20 10^6/uL 4.0-5.4 Hemoglobin 13.0 g/dL 12.0-16.0 Hematocrit 39 % 35-47 Mean Corpuscular Volume 93 fL 80-97 Mean Corpuscular Hemoglobin 31 pg 27-31 Mean Corpuscular HGB Conc 33 g/dL 31-36 Red Cell Distribution Width 14 % 10.5-15 Platelet Count 177 10^3/uL 150-450 Mean Platelet Volume 9 um3 7.4-10.4 Abs Neutrophils 4.4 10^3/uL 1.5-7.7 Abs Lymphocytes 2.6 10^3/uL 1.0-4.8 Abs Monocytes 0.8 10^3/uL 0-0.8 Abs Eosinophils 0 10^3/uL 0-0.6 Abs Basophils 0.1 10^3/uL 0-0.2 Abs Nucleated RBC 0.01 10^3/uL Granulocyte % 55.5 % 38-83 Lymphocyte % 32.8 % 25-47 Monocyte % 10.0 % High 1-9 Eosinophil % 0.5 % 0-6 Basophil % 1.2 % 0-2 Nucleated Red Blood Cells % 0.1 Comp Metabolic Panel 07/29/2016 Sodium 132 mmol/L Low 133-145 Chloride 98 mmol/L Low 101-111 Co2 Carbon Dioxide 25 mmol/L 22-32 Glucose 105 mg/dL High 70-100 Blood Urea Nitrogen 15 mg/dL 6-24 Creatinine 0.83 mg/dL 0.51-0.95 BUN/Creatinine Ratio 18.1 8-20 Calcium 8.7 mg/dL 8.6-10.3 Total Protein 6.2 g/dL Low 6.4-8.9 Albumin 3.7 g/dL 3.2-5.2 Globulin 2.5 g/dL 2-4 Albumin/Globulin Ratio 1.5 1-3 Total Bilirubin 0.20 mg/dL 0.2-1.0 Alkaline Phosphatase 59 U/L 34-104 Alt 7 U/L 7-52 Egfr Non- 71.4 >60 Egfr 91.8 >60 13 Potassium 3.5 mmol/L 3.5-5.0 Anion Gap 9 mmol/L 2-11 Ast 15 U/L 13-39 Laboratory test finding 07/29/2016 C Reactive Protein 6.45 mg/L High < 5.00 14 Troponin-I (TnI) 0.01 ng/mL <0.04 15 Lipid Profile (Trig/Chol/HDL) 06/08/2016 Triglycerides 163 mg/dL 16 Cholesterol 178 mg/dL 17 HDL Cholesterol 49.3 mg/dL 18 LDL Cholesterol 96 mg/dL 19 Comp Metabolic Panel 06/08/2016 Sodium 137 mmol/L 133-145 Potassium 4.3 mmol/L 3.5-5.0 Chloride 102 mmol/L 101-111 Co2 Carbon Dioxide 28 mmol/L 22-32 Anion Gap 7 mmol/L 2-11 Glucose 93 mg/dL 70-100 Blood Urea Nitrogen 17 mg/dL 6-24 Creatinine 0.84 mg/dL 0.51-0.95 BUN/Creatinine Ratio 20.2 High 8-20 Calcium 9.0 mg/dL 8.6-10.3 Total Protein 6.3 g/dL Low 6.4-8.9 Albumin 3.9 g/dL 3.2-5.2 Globulin 2.4 g/dL 2-4 Albumin/Globulin Ratio 1.6 1-3 Total Bilirubin 0.30 mg/dL 0.2-1.0 Alkaline Phosphatase 52 U/L 34-104 Alt 8 U/L 7-52 Ast 14 U/L 13-39 Egfr Non- 70.4 >60 Egfr 90.5 >60 20 Laboratory test finding 07/20/2015 TSH (Thyroid Stim Horm) 4.22 ?IU/mL 0.34-5.60 21 T3 Free 2.20 pg/mL Low 2.5-3.9 22 Free T4 (Free Thyroxine) 1.06 ng/mL 0.61-1.12 23 Laboratory test finding 01/12/2015 Cytology Interface Order SEE RESULT BELOW 24 Human Papilloma Virus Rna Negative Negative 25 Laboratory test finding 12/21/2014 Valproic Acid 124.0 g/mL High 50.0- 100.0 CMP Panel 12/21/2014 Sodium 137 mmol/L 133-145 Potassium 4.5 mmol/L 3.5-5.0 Chloride 101 mmol/L 101-111 Co2 Carbon Dioxide 29 mmol/L 22-32 Anion Gap 7 mmol/L 2-11 Glucose 90 mg/dL 70-100 Blood Urea Nitrogen 11 mg/dL 6-24 Creatinine 0.86 mg/dL 0.51-0.95 BUN/Creatinine Ratio 12.8 8-20 Calcium 9.5 mg/dL 8.6-10.3 Total Protein 6.3 g/dL Low 6.4-8.9 Albumin 4.2 g/dL 3.2-5.2 Globulin 2.1 g/dL 2-4 Albumin/Globulin Ratio 2.0 1-3 Total Bilirubin 0.30 mg/dL 0.2-1.0 Alkaline Phosphatase 52 U/L 34-104 Alt 8 U/L 7-52 Ast 15 U/L 13-39 Egfr Non- 68.8 >60 Egfr 88.4 >60 26 Lipid Panel 12/21/2014 Triglycerides 212 mg/dL 27 Cholesterol 219 mg/dL 28 HDL Cholesterol 47.6 mg/dL 29 LDL Cholesterol 129 mg/dL 30 Laboratory test finding 04/29/2014 Valproic Acid 97 g/mL 50.0-100.0 Vitamin D, 25 Hydroxy 04/08/2014 25-Hydroxy Vitamin D2 <4.0 ng/mL 25-Hydroxy Vitamin D3 35 ng/mL 25-Hydroxy Vitamin D Total 35 ng/mL 31 Laboratory test finding 04/08/2014 Valproic Acid 114 g/mL High 50.0-100.0 Protein Electrophoresis 04/08/2014 Total Protein(Pep) 6.8 g/dL 6.3 - 7.9 Albumin 3.4 g/dL 3.4-4.7 Alpha-1 Globulin 0.2 g/dL 0.1-0.3 Alpha-2 Globulin 1.1 g/dL 0.6-1.0 Beta Globulin 1.1 g/dL 0.7-1.2 Gamma Globulin 1.0 g/dL 0.6-1.6 Albumin/Globulin Ratio 0.99 Impression See Comment 32 Laboratory test finding 04/08/2014 Vitamin B12 592 pg/mL 180-914 33 TSH (Thyroid Stimulating Horm) 1.08 IU/mL 0.34-5.60 Basic Metabolic Panel 04/08/2014 Sodium 137 mmol/L 133-145 Potassium 4.0 mmol/L 3.7-5.6 Chloride 102 mmol/L 101-111 Co2 Carbon Dioxide 25 mmol/L 22-32 Anion Gap 10 mmol/L 2-11 Glucose 88 mg/dL 70-100 Blood Urea Nitrogen 17 mg/dL 6-24 Creatinine 0.78 mg/dL 0.51-0.95 BUN/Creatinine Ratio 21.8 High 8-20 Calcium 9.5 mg/dL 8.6-10.3 Egfr Non- 77.3 >60 Egfr 99.4 >60 34 Laboratory test 04/16/2013 TSH (Thyroid Stimulating 4.16 miu/mL 0.34- 5.60 35 finding Horm) Lipid Profile 04/16/2013 Triglycerides 122 mg/dL 40-200 (Trig/Chol/HDL) Cholesterol 151 mg/dL Less than 200 HDL Cholesterol 45 mg/dL 40-60 36 Cholesterol/HDL Ratio 3.4 Average 1-4.44 LDL Cholesterol 81.6 Less Than 100 37 Comp Metabolic Panel 04/16/2013 Sodium 140 mmol/L 133-145 Potassium 4.1 mmol/L 3.5-5.0 Chloride 106 mmol/L 101-111 Co2 Carbon Dioxide 28.0 mmol/L 22-32 Anion Gap 6.0 mmol/L 2-11 Glucose 85 mg/dL 70-100 Blood Urea Nitrogen 21 mg/dL 6-24 Creatinine 0.80 mg/dL 0.50-1.40 BUN/Creatinine Ratio 26.3 High 8-20 Calcium 9.2 mg/dL 8.1-9.9 Total Protein 6.0 g/dL Low 6.2-8.1 Albumin 3.5 g/dL Low 3.6-5.4 Globulin 2.5 g/dL 2-4 Albumin/Globulin Ratio 1.4 1-3 Total Bilirubin 0.5 mg/dL 0.4-1.5 Alkaline Phosphatase 54 U/L 30-110 Alt 12 U/L Low 14-54 Ast 18 U/L 12-42 Egfr Non- 75.3 >60 Egfr 96.9 >60 38 CBC Auto Diff 03/27/2012 White Blood Count 10.0 CUMM 4.8-10.8 Red Cell Count 4.20 CUMM 4.2-5.4 Hemoglobin 13.1 g/dL 12.0-16.0 Hematocrit 39 % 35-47 Mean Corpuscular Volume 92 um3 79-97 Mean Corpuscular Hemoglob 31 pg 27-31 Mean Corpuscular HGB Cone 34 g/dL 32-36 Redcell Distribution WDTH 15 % 10.5-15 Platelet Count 154 CUMM 150-450 Mean Platelet Volume 8.3 um3 7.4-10.4 Gran % 64.1 % 38-83 Lymph % 27.0 % 20-45 Mononuclear % 8.1 % 1-9 Eosinophil % 0.4 % 0-6 Basophil % 0.4 % 0-2 Abs Lymphs 2.7 1.0-4.8 Abs Mononuclear 0.8 0-0.8 Absolute Neutrophil Count 6.4 1.5-7.7 Abs Eosinophils 0 0-0.6 Abs Basophils 0 0-0.2 Comp Metabolic Panel 03/27/2012 Sodium 135 mmol/L 135-145 Potassium 3.8 mmol/L 3.5-5.0 Chloride 106 mmol/L 101-111 Co2 (Carbon Dioxide) 24.0 mmol/L 22-32 Anion Gap 5.0 mmol/L 2-11 39 Glucose 131 mg/dL High 70-100 BUN 12 mg/dL 6-24 Creatinine 1.0 mg/dL 0.50-1.40 One Over Creatinine 1.00 BUN/Creatinine Ratio 12.0 8-20 Calcium 8.8 mg/dL 8.1-9.9 Total Protein 5.2 GM/DL Low 6.2-8.1 Albumin 3.3 GM/DL Low 3.6-5.4 Globulin 1.9 GM/DL Low 2-4 Albumin/Globulin Ratio 1.7 1-3 Bilirubin Total 0.4 mg/dL 0.4-1.5 40 Alkaline Phosphatase 61 U/L 30-110 Alt (SGPT) 22 U/L 14-54 Ast (Sgot) 32 U/L 12-42 eGFR Non- 58.5 > 60 eGFR 75.2 > 60 41 Laboratory test finding 03/27/2012 Troponin-I 0 NG/ML 0-0.06 42 Protime 03/27/2012 Inr 0.85 Low 0.88-1.13 43 Protime 10.0 SEC Low 10.3-13.5 44 Laboratory test finding 03/27/2012 PTT (Aptt) 27.5 SEC 25.1-38.5 Laboratory test finding 02/22/2012 TSH 4.55 MIU/ML 0.34-5.60 45 Lipid Profile (Trig/Chol/HDL) 02/22/2012 Triglyceride 174 mg/dL 40-200 45 Cholesterol 172 mg/dL Less Than 200 45, 46 High Density Lipoprotein 51 mg/dL 40-60 45, 47 Cholesterol/HDL Ratio 3.37 AVERAGE 1-4.44 45 Low Density Lipoprotein 86 mg/dL Less Than 100 45, 48 CBC With Manual Diff 02/22/2012 White Blood Count 8.8 CUMM 4.8-10.8 45 Red Cell Count 4.33 CUMM 4.2-5.4 45 Hemoglobin 13.5 g/dL 12.0-16.0 45 Hematocrit 39 % 35-47 45 Mean Corpuscular Volume 90 um3 79-97 45 Mean Corpuscular Hemoglob 31 pg 27-31 45 Mean Corpuscular HGB Cone 34 g/dL 32-36 45 Redcell Distribution WDTH 14 % 10.5-15 45 Platelet Count 180 CUMM 150-450 45 Mean Platelet Volume 8.6 um3 7.4-10.4 45 Absolute Neutrophil Count 4.3 1.5-7.7 45 Polysegmented Neutrophil 57 % 38-83 45 Lymphocyte 31 % 25-47 45 Monocyte 11 % 0-13 45 Eosinophil 1 % 0-6 45 RBC Morphology NORMAL 45 Comp Metabolic Panel 02/22/2012 Sodium 139 mmol/L 135-145 45 Potassium 3.5 mmol/L 3.5-5.0 45 Chloride 105 mmol/L 101-111 45 Co2 (Carbon Dioxide) 28.0 mmol/L 22-32 45 Anion Gap 6.0 mmol/L 2-11 45, 49 Glucose 98 mg/dL 70-100 45 BUN 12 mg/dL 6-24 45 Creatinine 0.8 mg/dL 0.50-1.40 45 One Over Creatinine 1.25 45 BUN/Creatinine Ratio 15.0 8-20 45 Calcium 9.5 mg/dL 8.1-9.9 45 Total Protein 6.0 GM/DL Low 6.2-8.1 45 Albumin 3.6 GM/DL 3.6-5.4 45 Globulin 2.4 GM/DL 2-4 45 Albumin/Globulin Ratio 1.5 1-3 45 Bilirubin Total 0.7 mg/dL 0.4-1.5 45, 50 Alkaline Phosphatase 58 U/L 30-110 45 Alt (SGPT) 17 U/L 14-54 45 Ast (Sgot) 23 U/L 12-42 45 eGFR Non- 75.6 > 60 45 eGFR 97.3 > 60 45, 51 Comp Metabolic Panel 08/20/2011 Sodium 140 mmol/L 135-145 Potassium 4.9 mmol/L 3.5-5.0 Chloride 103 mmol/L 101-111 Co2 (Carbon Dioxide) 26.0 mmol/L 22-32 Anion Gap 11.0 mmol/L 2-11 52 Glucose 98 mg/dL 70-100 BUN 9 mg/dL 6-24 Creatinine 0.9 mg/dL 0.50-1.40 One Over Creatinine 1.11 BUN/Creatinine Ratio 10.0 8-20 Calcium 9.4 mg/dL 8.1-9.9 Total Protein 6.7 GM/DL 6.2-8.1 Albumin 3.7 GM/DL 3.6-5.4 Globulin 3.0 GM/DL 2-4 Albumin/Globulin Ratio 1.2 1-3 Bilirubin Total 0.4 mg/dL 0.4-1.5 53 Alkaline Phosphatase 81 U/L 30-110 Alt (SGPT) 20 U/L 14-54 Ast (Sgot) 27 U/L 12-42 eGFR Non- 66.3 > 60 eGFR 85.2 > 60 54 Lipid Profile (Trig/Chol/HDL) 08/20/2011 Triglyceride 397 mg/dL High 40- 200 Cholesterol 208 mg/dL High Less Than 200 55 High Density Lipoprotein 47 mg/dL 40-60 56 Cholesterol/HDL Ratio 4.43 AVERAGE 1-4.44 Low Density Lipoprotein 82 mg/dL Less Than 100 57 Laboratory test finding 08/20/2011 Valproic Acid 120.7 g/mL High 50-100 58 (Depakene) TSH 4.40 MIU/ML 0.34-5.60 Hemoglobin A1c 5.7 % Less Than 6.0 59 CBC Auto Diff 04/12/2011 White Blood Count 6.4 CUMM 4.8-10.8 Red Cell Count 4.17 CUMM Low 4.2-5.4 Hemoglobin 13.4 g/dL 12.0-16.0 Hematocrit 39 % 35-47 Mean Corpuscular Volume 93 um3 79-97 Mean Corpuscular Hemoglob 32 pg High 27-31 Mean Corpuscular HGB Cone 35 g/dL 32-36 Redcell Distribution WDTH 14 % 10.5-15 Platelet Count 167 CUMM 150-450 Mean Platelet Volume 7.5 um3 7.4-10.4 Gran % 41.2 % 38-83 Lymph % 44.8 % 25-47 Mononuclear % 13.3 % High 1-9 Eosinophil % 0.6 % 0-6 Basophil % 0.1 % 0-2 Abs Lymphs 2.9 1.0-4.8 Abs Mononuclear 0.9 High 0-0.8 Absolute Neutrophil Count 2.6 1.5-7.7 Abs Eosinophils 0 0-0.6 Abs Basophils 0 0-0.2 Urinalysis W/Microscopic 04/12/2011 Ua Color YELLOW Yellow Appearance-Urine CLEAR Clear Specific [place]-Ur 1.028 1.010-1.030 Esterase-Urine NEGATIVE Negative Nitrite NEGATIVE Negative [id number] NEGATIVE Negative Protein-Urine NEGATIVE Negative PH-Urine 6.0 5-9 Blood-Urine NEGATIVE Negative Ketones-Urine TRACE Negative Bilirubin-Ur NEGATIVE Negative Glucose-Urine NEGATIVE Negative WBC-Urine 2-4 0-5 RBC-Urine NONE SEEN 0-2 Mucus Urine MODERATE None Epith Cells-Ur MODERATE None Bacteria-Urine TRACE None Crystals-Urine MODERATE None CBC No Diff 03/13/2011 White Blood Count 6.2 CUMM 4.8-10.8 Red Cell Count 4.62 CUMM 4.2-5.4 Hemoglobin 14.6 g/dL 12.0-16.0 Hematocrit 44 % 35-47 Mean Corpuscular Volume 94 um3 79-97 Mean Corpuscular Hemoglob 32 pg High 27-31 Mean Corpuscular HGB Cone 34 g/dL 32-36 Redcell Distribution WDTH 15 % 10.5-15 Platelet Count 134 CUMM Low 150-450 Mean Platelet Volume 7.9 um3 7.4-10.4 CBC Auto Diff 03/13/2011 White Blood Count 6.2 CUMM 4.8-10.8 Red Cell Count 4.62 CUMM 4.2-5.4 Hemoglobin 14.6 g/dL 12.0-16.0 Hematocrit 44 % 35-47 Mean Corpuscular Volume 94 um3 79-97 Mean Corpuscular Hemoglob 32 pg High 27-31 Mean Corpuscular HGB Cone 34 g/dL 32-36 Redcell Distribution WDTH 15 % 10.5-15 Platelet Count 134 CUMM Low 150-450 Mean Platelet Volume 7.9 um3 7.4-10.4 Gran % 53.5 % 38-83 Lymph % 33.9 % 25-47 Mononuclear % 10.9 % High 1-9 Eosinophil % 0.7 % 0-6 Basophil % 1.0 % 0-2 Abs Lymphs 2.0 1.0-4.8 Abs Mononuclear 0.7 0-0.8 Absolute Neutrophil Count 3.2 1.5-7.7 Abs Eosinophils 0 0-0.6 Abs Basophils 0.1 0-0.2 Comp Metabolic Panel 03/13/2011 Sodium 139 mmol/L 135-145 Potassium 3.7 mmol/L 3.5-5.0 Chloride 106 mmol/L 101-111 Co2 (Carbon Dioxide) 24.0 mmol/L 22-32 Anion Gap 9.0 mmol/L 2-11 60 Glucose 146 mg/dL High 70-100 BUN 8 mg/dL 6-24 Creatinine 0.80 mg/dL 0.50-1.40 One Over Creatinine 1.20 BUN/Creatinine Ratio 10.0 8-20 Calcium 9.3 mg/dL 8.1-9.9 Total Protein 6.7 GM/DL 6.2-8.1 Albumin 3.7 GM/DL 3.6-5.4 Globulin 3.0 GM/DL 2-4 Albumin/Globulin Ratio 1.2 1-3 Bilirubin Total 0.6 mg/dL 0.4-1.5 61 Alkaline Phosphatase 89 U/L 30-110 Alt (SGPT) 25 U/L 14-54 Ast (Sgot) 40 U/L 12-42 eGFR Non- 75.9 > 60 eGFR 97.6 > 60 62 Liver Function Panel 03/13/2011 Bilirubin Direct 0.1 mg/dL 0.1-0.5 Indirect Bilirubin 0.5 mg/dL 0.3-1.0 63 Laboratory test finding 03/13/2011 Valproic Acid (Depakene) 60.0 g/mL 50-100 64 Acetaminophen < 10 g/mL Low 10-30 65 Alcohol < 10.0 mg/dL None Detected 66 Salicylate < 4.0 mg/dL Less Than 30 67 Thyroxine Free 0.69 ng/dL 0.61-1.24 TSH 2.86 MIU/ML 0.34-5.60 CBC Auto Diff 12/13/2010 White Blood Count 8.9 CUMM 4.8-10.8 Red Cell Count 4.31 CUMM 4.2-5.4 Hemoglobin 13.6 g/dL 12.0-16.0 Hematocrit 40 % 35-47 Mean Corpuscular Volume 92 um3 79-97 Mean Corpuscular Hemoglob 32 pg High 27-31 Mean Corpuscular HGB Cone 34 g/dL 32-36 Redcell Distribution WDTH 14 % 10.5-15 Platelet Count 192 CUMM 150-450 Mean Platelet Volume 8.3 um3 7.4-10.4 Gran % 57.4 % 38-83 Lymph % 31.7 % 25-47 Mononuclear % 10.0 % High 1-9 Eosinophil % 0.7 % 0-6 Basophil % 0.2 % 0-2 Abs Lymphs 2.8 1.0-4.8 Abs Mononuclear 0.9 High 0-0.8 Absolute Neutrophil Count 5.1 1.5-7.7 Abs Eosinophils 0.1 0-0.6 Abs Basophils 0 0-0.2 Comp Metabolic Panel 12/13/2010 Sodium 140 mmol/L 135-145 Potassium 3.7 mmol/L 3.5-5.0 Chloride 106 mmol/L 101-111 Co2 (Carbon Dioxide) 25.0 mmol/L 22-32 Anion Gap 9.0 mmol/L 2-11 68 Glucose 117 mg/dL High 70-100 BUN 9 mg/dL 6-24 Creatinine 0.90 mg/dL 0.50-1.40 One Over Creatinine 1.10 BUN/Creatinine Ratio 10.0 8-20 Calcium 9.1 mg/dL 8.1-9.9 Total Protein 6.4 GM/DL 6.2-8.1 Albumin 3.7 GM/DL 3.6-5.4 Globulin 2.7 GM/DL 2-4 Albumin/Globulin Ratio 1.4 1-3 Bilirubin Total 0.3 mg/dL Low 0.4-1.5 69 Alkaline Phosphatase 76 U/L 30-110 Alt (SGPT) 18 U/L 14-54 Ast (Sgot) 29 U/L 12-42 eGFR Non- 66.3 > 60 eGFR 85.2 > 60 70 CBC With Electronic Diff 08/01/2010 White Blood Count 4.9 CUMM 4.8-10.8 Red Cell Count 4.49 CUMM 4.2-5.4 Hemoglobin 14.2 g/dL 12.0-16.0 Hematocrit 41 % 35-47 Mean Corpuscular Volume 92 um3 79-97 Mean Corpuscular Hemoglob 32 pg High 27-31 Mean Corpuscular HGB Cone 34 g/dL 32-36 Redcell Distribution WDTH 14 % 10.5-15 Platelet Count 130 CUMM Low 150-450 Mean Platelet Volume 6.8 um3 Low 7.4-10.4 Gran % 49.2 % 38-83 Lymph % 32.6 % 25-47 Mononuclear % 12.9 % High 1-9 Eosinophil % 5.0 % 0-6 Basophil % 0.3 % 0-2 Abs Lymphs 1.6 1.0-4.8 Abs Mononuclear 0.6 0-0.8 Absolute Neutrophil Count 2.4 1.5-7.7 Abs Eosinophils 0.2 0-0.6 Abs Basophils 0 0-0.2 Urine Drug SCR ED 08/01/2010 Amphetamines Urine NONE DETECTED None Detect & Pain Clinic Screen Barbituates Urine Screen NONE DETECTED None Detect Benzodiazepine Ur Screen NONE DETECTED None Detect Cannabinoid Urine Screen NONE DETECTED None Detect Cocaine Metabolites Urine NONE DETECTED None Detect Opiates Urine Screen NONE DETECTED None Detect PCP Urine Screen NONE DETECTED None Detect 71 Comp Metabolic Panel 08/01/2010 Sodium 140 mmol/L 135-145 Potassium 3.4 mmol/L Low 3.5-5.0 Chloride 106 mmol/L 101-111 Co2 (Carbon Dioxide) 24.0 mmol/L 22-32 Anion Gap 10.0 mmol/L 2-11 72 Glucose 150 mg/dL High 70-100 73 BUN 13 mg/dL 6-24 Creatinine 0.90 mg/dL 0.50-1.40 One Over Creatinine 1.10 BUN/Creatinine Ratio 14.4 8-20 Calcium 9.1 mg/dL 8.1-9.9 Total Protein 6.0 GM/DL Low 6.2-8.1 Albumin 3.5 GM/DL Low 3.6-5.4 Globulin 2.5 GM/DL 2-4 Albumin/Globulin Ratio 1.4 1-3 Bilirubin Total 0.5 mg/dL 0.4-1.5 74 Alkaline Phosphatase 64 U/L 30-110 Alt (SGPT) 22 U/L 14-54 Ast (Sgot) 48 U/L High 12-42 eGFR Non- 70.7 > 60 eGFR 85.6 > 60 75 Laboratory test finding 08/01/2010 Troponin-I 0.04 NG/ML 0-0.06 76 Valproic Acid (Depakene) 101.3 g/mL High 50-100 77 Acetaminophen < 10 g/mL Low 10-30 78 Alcohol < 10.0 mg/dL None Detected 79 Salicylate < 4.0 mg/dL Less Than 30 80 Thyroxine Free 0.69 NG/ML 0.61-1.24 TSH 4.83 MIU/ML 0.34-5.60 Urine Culture & 02/13/2010 Urine Culture Sensitivi SN1 81 Sensitivi CBC With Electronic Diff 02/06/2010 White Blood Count 7.4 CUMM 4.8-10.8 Red Cell Count 4.47 CUMM 4.2-5.4 Hemoglobin 14.3 g/dL 12.0-16.0 Hematocrit 42 % 35-47 Mean Corpuscular Volume 93 um3 79-97 Mean Corpuscular Hemoglob 32 pg High 27-31 Mean Corpuscular HGB Cone 35 g/dL 32-36 Redcell Distribution WDTH 14 % 10.5-15 Platelet Count 165 CUMM 150-450 Mean Platelet Volume 7.4 um3 7.4-10.4 Gran % 57.6 % 38-83 Lymph % 30.5 % 25-47 Mononuclear % 9.8 % High 1-9 Eosinophil % 0.4 % 0-6 Basophil % 1.7 % 0-2 Abs Lymphs 2.3 1.0-4.8 Abs Mononuclear 0.7 0-0.8 Absolute Neutrophil Count 4.3 1.5-7.7 Abs Eosinophils 0 0-0.6 Abs Basophils 0.1 0-0.2 Lipid Profile (Trig/Chol/HDL) 02/06/2010 Triglyceride 274 mg/dL High 40- 200 Cholesterol 218 mg/dL High Less Than 200 82 High Density Lipoprotein 49 mg/dL 40-60 83 Cholesterol/HDL Ratio 4.45 AVERAGE High 1-4.44 Low Density Lipoprotein 114 mg/dL High Less Than 100 84 Laboratory test finding 02/06/2010 TSH 4.07 MIU/ML 0.34-5.60 Comp Metabolic Panel 02/06/2010 Sodium 139 mmol/L 135-145 Potassium 3.9 mmol/L 3.5-5.0 Chloride 103 mmol/L 101-111 Co2 (Carbon Dioxide) 27.0 mmol/L 22-32 Anion Gap 9.0 mmol/L 2-11 85 Glucose 109 mg/dL High 70-100 86 BUN 10 mg/dL 6-24 Creatinine 1.10 mg/dL 0.50-1.40 One Over Creatinine 0.90 BUN/Creatinine Ratio 9.1 8-20 Calcium 9.4 mg/dL 8.1-9.9 87 Total Protein 6.3 GM/DL 6.2-8.1 Albumin 3.7 GM/DL 3.6-5.4 Globulin 2.6 GM/DL 2-4 Albumin/Globulin Ratio 1.4 1-3 Bilirubin Total 0.6 mg/dL 0.4-1.5 88 Alkaline Phosphatase 64 U/L 30-110 Alt (SGPT) 18 U/L 14-54 Ast (Sgot) 33 U/L 12-42 eGFR Non- 56.1 > 60 eGFR 67.9 > 60 89 Urinalysis W/Microscopic 02/06/2010 Ua Color RON Yellow Appearance-Urine CLEAR Clear Specific [place]-Ur 1.041 High 1.010-1.030 Esterase-Urine 1+ Negative Nitrite NEGATIVE Negative [id number] NEGATIVE Negative Protein-Urine TRACE Negative PH-Urine 5.5 5-9 Blood-Urine NEGATIVE Negative Ketones-Urine TRACE Negative Bilirubin-Ur SEE ICTOTEST Negative Glucose-Urine NEGATIVE Negative WBC-Urine 3-5 0-5 RBC-Urine 0-2 0-2 Epith Cells-Ur FEW None Bacteria-Urine TRACE None Laboratory test finding 02/06/2010 Ictotest-Urine NEGATIVE 90 1 Because ethnic data is not always readily available, this report includes an eGFR for both -Americans and non- Americans. The National Kidney Disease Education Program (NKDEP) does not endorse the use of the MDRD equation for patients that are not between the ages of 18 and 70, are , have extremes of body size, muscle mass, or nutritional status, or are non- or non-. According to the National Kid[employer], irrespective of diagnosis, the stage of the disease is based on the level of kidney function: Stage Description GFR(mL/min/1.73 m(2)) 1 Kidney damage with normal or decreased GFR 90 2 Kidney damage with mild decrease in GFR 60-89 3 Moderate decrease in GFR 30-59 4 Severe decrease in GFR 15-29 5 Kidney failure <15 (or dialysis) 2 Because ethnic data is not always readily available, this report includes an eGFR for both -Americans and non- Americans. The National Kidney Disease Education Program (NKDEP) does not endorse the use of the MDRD equation for patients that are not between the ages of 18 and 70, are , have extremes of body size, muscle mass, or nutritional status, or are non- or non-. According to the National Kidney Foundation, irrespective of diagnosis, the stage of the disease is based on the level of kidney function: Stage Description GFR(mL/min/1.73 m(2)) 1 Kidney damage with normal or decreased GFR 90 2 Kidney damage with mild decrease in GFR 60-89 3 Moderate decrease in GFR 30-59 4 Severe decrease in GFR 15-29 5 Kidney failure <15 (or dialysis) 3 Because ethnic data is not always readily available, this report includes an eGFR for both -Americans and non- Americans. The National Kidney Disease Education Program (NKDEP) does not endorse the use of the MDRD equation for patients that are not between the ages of 18 and 70, are , have extremes of body size, muscle mass, or nutritional status, or are non- or non-. According to the National [employer], irrespective of diagnosis, the stage of the disease is based on the level of kidney function: Stage Description GFR(mL/min/1.73 m(2)) 1 Kidney damage with normal or decreased GFR 90 2 Kidney damage with mild decrease in GFR 60-89 3 Moderate decrease in GFR 30-59 4 Severe decrease in GFR 15-29 5 Kidney failure <15 (or dialysis) 4 Because ethnic data is not always readily available, this report includes an eGFR for both -Americans and non- Americans. The National Kidney Disease Education Program (NKDEP) does not endorse the use of the MDRD equation for patients that are not between the ages of 18 and 70, are , have extremes of body size, muscle mass, or nutritional status, or are non- or non-. According to the National [employer], irrespective of diagnosis, the stage of the disease is based on the level of kidney function: Stage Description GFR(mL/min/1.73 m(2)) 1 Kidney damage with normal or decreased GFR 90 2 Kidney damage with mild decrease in GFR 60-89 3 Moderate decrease in GFR 30-59 4 Severe decrease in GFR 15-29 5 Kidney failure <15 (or dialysis) 5 Because ethnic data is not always readily available, this report includes an eGFR for both -Americans and non- Americans. The National Kidney Disease Education Program (NKDEP) does not endorse the use of the MDRD equation for patients that are not between the ages of 18 and 70, are , have extremes of body size, muscle mass, or nutritional status, or are non- or non-. According to the National [employer], irrespective of diagnosis, the stage of the disease is based on the level of kidney function: Stage Description GFR(mL/min/1.73 m(2)) 1 Kidney damage with normal or decreased GFR 90 2 Kidney damage with mild decrease in GFR 60-89 3 Moderate decrease in GFR 30-59 4 Severe decrease in GFR 15-29 5 Kidney failure <15 (or dialysis) 6 [id number] 7 Because ethnic data is not always readily available, this report includes an eGFR for both -Americans and non- Americans. The National Kidney Disease Education Program (NKDEP) does not endorse the use of the MDRD equation for patients that are not between the ages of 18 and 70, are , have extremes of body size, muscle mass, or nutritional status, or are non- or non-. According to the National [employer], irrespective of diagnosis, the stage of the disease is based on the level of kidney function: Stage Description GFR(mL/min/1.73 m(2)) 1 Kidney damage with normal or decreased GFR 90 2 Kidney damage with mild decrease in GFR 60-89 3 Moderate decrease in GFR 30-59 4 Severe decrease in GFR 15-29 5 Kidney failure <15 (or dialysis) 8 SEE RESULT BELOW Name: NERY POWERS Esther : [address]: Breanna Prieto MD Acct: [id number] Unit: [id number] AGE: 56 Location: [facility] Re01/08/17 SEX: F Status: REG REF SPEC: [id number] RAMON: 01/08/17-[address]: Breanna Prieto MD REQ: [id number] RECD: 01/08/17 STATUS: SOUT _ ORDERED: TP IMAGE ANAL, HPV/Thin Prep, HPV 16/18 GENE COMMENTS: [id number] FINAL DIAGNOSIS Negative for Intraepithelial lesion or Malignancy A. Ectocervical/Endocervical Specimen Adequacy: Satisfactory of evaluation Transformation zone component cannot be definitely identified due to presence of atrophy or other hormonal changes Patient Information: HPV: High risk HPV RNA testing regardless of pap results. HPV 16/18 Genotype Reflex Actual Specimen Date: 01/08/17 Post Menopausal?: Y Previous Abnormal Pap Smears?:N Date Time Test Result Flag (u) Normal Range 01/08/17 1418 HPV RNA RFLX GE Negative Negative The high-risk HPV types detected by the assay include: 16, 18, 31, 33, 35, 39, 45, 51, 52, 56, 58, 59, 66, and 68. Signed (signature on file) CARLOS Portillo(ASCP) 01/09 1555 This Pap test was evaluated with the assistance of the [place] [employer] Test Imaging System. Due to cytologic findings at the tire fixer microscope, comprehensive manual rescreening by a Sports Analyst may be required. The Pap Smear is a screening test designed to aid in the detection of premalignant and malignant conditions of the uterine cervix. It is not a diagnostic procedure and should not be used as the sole means of detecting cervical cancer. Both false- positive and false- negative reports do occur. Depending on your risk status, a Pap smear should be obtained and evaluated every 1-3 years. END OF REPORT * ML=Testing performed at Main Lab DEPARTMENT OF PATHOLOGY, [address] [place] [address] Amarjit Kennedy M.D. Director [facility] # [id number] 9 The high-risk HPV types detected by the assay include: 16, 18, 31, 33, 35, 39, 45, 51, 52, 56, 58, 59, 66, and 68. 10 SEE RESULT BELOW Name: NERY POWERS : [address]: Sarah Garcia MD Acct: [id number] Unit: [id number] AGE: 56 Location: [facility] Re01/04/17 SEX: F Status: REG [facility] SPEC: [id number] RAMON: 01/04/17-[address]: Sarah Garcia MD REQ: [id number] RECD: 01/04/179766 STATUS: SOUT _ ORDERED: LEVEL 5/3, IMMUNO-FIRST, IMMUNO-QUANT/9 Addendum: The following stains were performed with appropriate controls on block 1F, 1H and 1L representing the 3 described tumor masses with the more lateral mass in one F, the smaller lesion in 1H and the largest central lesion in 1 L. Block 1F (lateral mass) ER positive, 2-3 plus, greater than 90% of tumor WI positive, 2 plus, 5% tumor HER-2 negative (0+) Block 1H (smallest lesion) ER positive, 2-3 plus, >90% tumor WI negative HER-2 negative (0+) Block 1L (larger Central lesion) ER positive, 3+, greater than 90% of tumor WI negative HER-2 negative (0+) Addendum Signed (signature on file) Amarjit Kennedy MD 1129 Addendum: Three distinct invasive tumor foci with similar histologic features are identified in part 1 as described in the gross description. Staging is based on the largest tumor measurement of 25 mm with the additional tumors measuring up to 24 mm ( lateral most, previously biopsied) and 5 mm. Addendum Signed (signature on file) Amarjit Kennedy MD 1432 FINAL DIAGNOSIS CONTINUED ON NEXT PAGE * ML=Testing performed at [facility] Lab DEPARTMENT OF PATHOLOGY, [address] [place] [address] Amarjit Kennedy M.D. Director [facility] # [id number] RUN DATE: 01/09/17 [facility] LAB LIVE PAGE 2 Patient: NERY POWERS [id number] (Continued) FINAL DIAGNOSIS (Continued) 1. Breast, right, lumpectomy: -- Invasive ductal adenocarcinoma of breast, multifocal with: Size: 25 mm largest single dimension. See comment. Overall Wilbert grade: 2/3 (7/9 points). Tubule formation: 3. Nuclear grade: 2. Mitotic count: 2 Margins: Cysts tumor approaches to 4 mm of the mid inferior anterior margin. All other margins clear by greater than 5 mm. Lymphovascular invasion: No definitive alvei identified.. Skin: No skin involvement identified.. Chest-wall / pectoralis involvement: Not seen. Ductal carcinoma in situ (DCIS): Present. Size: 20 mm greatest span. Extent and distribution: Seen in association with foci of invasive carcinoma, not extensive. Architectural pattern: Predominantly solid. Nuclear grade: 3. Necrosis: Focally present Margins: DCIS approaches to within 4 mm of the mid inferior anterior margin. Other margins clear by greater than 5 mm.. ER, WI, Her2/michele by immunohistochemistry with appropriate controls: ER: Positive, 3+, 90% of tumor. See comment. WI: Negative. Her2/michele: Negative, 0+. Microcalcifications: Not identified. Other findings: Prior biopsy sites related changes noted in block 1C. pTNM histopathologic stage: [id number] N/A. 2. Breast, right, inferior to first specimen, biopsy: -- Ductal carcinoma in situ. -- 11 mm maximal span. -- DCIS is transected along the cauterized anterior margin (slide 2H). 3. Axilla, right, sentinel lymphadenectomy: --One lymph node with micrometastatic adenocarcinoma (09/02). See comment. Comment: Estrogen, progesterone and HER-2 studies will be performed on the additional 2 tumor foci (not previously biopsied). The results will be reported in an addendum. The above reported results are from prior biopsy [id number]. CONTINUED ON NEXT PAGE * ML=Testing performed at Main Lab DEPARTMENT OF PATHOLOGY, [address] [place] [address] Amarjit Kennedy M.D. Director [facility] # [id number] RUN DATE: 01/09/17 [facility] LAB LIVE PAGE 3 Patient: NERY POWERS Esther [id number] (Continued) SPECIMEN COMMENTS (Continued) Multiple small sinusoidal tumor deposits are noted on sentinel lymph node and are highlighted by pankeratin stain performed with appropriate control. These foci measure greater than 200 cells in aggregate and span up to 0.5 mm and are categorized as micrometastasis. Dr. Stewart has reviewed this case and concurs. Per sentinel lymph node protocol multiple level sections as well as pankeratin with appropriate control were performed and examined in part 3. PRE-OPERATIVE DIAGNOSIS * Right breast cancer, 1) Suture bailey: short bailey superior, long suture bailey lateral, medium bailey medial, 2) short stitch marking touching surface, long bailey anterior edge GROSS DESCRIPTION 1. The specimen is received fresh labeled, Right Breast Cancer, Long Suture Bailey Lateral, Short Bailey Superior, Medium Bailey Medial, and consists of a 13.5 x 11.2 by up to 3.5 cm yellow-pink irregular to ovoid portion of fibrofatty soft tissue with three attached sutures which are designated as follows: long-lateral, short-superior and medium- medial. The specimen is partially surfaced by a 7.4 x 1.4 cm knowles-white skin ellipse on the superior anterior aspect. There is a needle localization wire entering the specimen from the superior aspect and extending towards the central specimen. There are three discrete knowles-pink indurated focally hemorrhagic masses within the central specimen measuring as follows (from lateral to medial): 2.4 x 1.7 x 1.7 cm, 0.5 x 0.5 x 0.4 cm and 2.5 x 2.1 x 2.0 cm. The more lateral mass is associated with the localization wire and is 1.1 cm from the superior anterior margin. The smallest mass is 1.4 cm from the inferior anterior margin and the largest mass is 0.4 cm from the inferior anterior margin. The remaining cut surface consists predominantly of yellow lobulated adipose tissue with moderate interspersed knowles-white focally dense fibrous tissue more predominant in the medial specimen. The specimen is inked as follows: superior anterior-blue, inferior anterior- green and deep-black, serially sectioned from lateral to medial and mechanical service representative sections are submitted in cassette A through O to include the more lateral mass in cassettes C through F including section associated with wire in cassette F, the smallest mass in cassettes G and H and the largest mass in cassettes J through M. 2. The specimen is received in formalin labeled, Right Breast Margin Inferior to First CONTINUED ON NEXT PAGE * ML=Testing performed at [facility] DEPARTMENT OF PATHOLOGY, [address] [place] [address] Amarjit Kennedy M.D. Director [facility] # [id number] RUN DATE: 01/09/17 [facility] LAB LIVE PAGE 4 Patient: NERY POWERS [id number] (Continued) GROSS DESCRIPTION (Continued) GROSS DESCRIPTION (Continued) Specimen, Short Suture Bailey Touching Surface, Long Bailey Anterior, and consists of a 9.5 by up to 7.1 x 2.0 cm yellow-pink irregular portion of fibrofatty soft tissue with two attached sutures which are designated as follows: short-touching surface and long- anterior. The cut surface consists predominantly of yellow lobulated adipose tissue with a small amount of interspersed knowles-white fibrous tissue. The discrete lesion is not identified. The true margin is inked as follows: anterior-blue and posterior-green. The specimen is serially sectioned from lateral to medial and mechanical service representative sections are submitted in cassettes A through I. 3. The specimen is received in formalin labeled, Right Breast Meridian Node , and consists of a 0.8 x 0.6 x 0.4 cm knowles-pink lymph node with a small amount of adherent yellow fat. The cut surface is glistening knowles-pink. The specimen is serially sectioned and entirely submitted in one cassette. Signed (signature on file) Amarjit Kennedy MD 1202 END OF REPORT * ML=Testing performed at Main Lab DEPARTMENT OF PATHOLOGY, [address] [place] [address] Amarjit Kennedy M.D. Director [facility] # [id number] 11 SEE RESULT BELOW Name: NERY POWERS : [address]: Sarah Garcia MD Acct: [id number] Unit: [id number] AGE: 56 Location: [facility] Re11/26/16 SEX: F Status: REG REF SPEC: [id number] RAMON: 11/26/16-[address]: Sarah Garcia MD REQ: [id number] RECD: 11/26/162808 STATUS: SOUT _ ORDERED: ANTONIETA ASP SUPERFIC/2 COMMENTS: [id number] FINAL DIAGNOSIS 1) Breast, right medial, fine needle aspiration: --Malignant -ductal adenocarcinoma. 2) Breast, right lateral, fine needle aspiration: Atypical-highly suspicious for ductal adenocarcinoma. See comment. Comment: The aspirate smears and ThinPrep slides in part 1 demonstrates numerous discohesive and cohesive disordered ductal epithelial elements with malignant cytologic features and absence of myoepithelial component. The aspirate smear and ThinPrep slide in part 2 demonstrates scattered small somewhat disordered cytologically atypical fragments. Some demonstrates mild nuclear contour irregularities and rare cytoplasmic mucin vacuoles. Some groups however are associated with myoepithelial cells and numerous bare bipolar nuclei are seen in the background. The findings are suspicious but not definitively diagnostic for ductal carcinoma. Correlation with clinical and imaging findings suggested. #1. BREAST RIGHT - RIGHT BREAST MEDIAL FINE NEEDLE ASPIRATION, #2. BREAST RIGHT - RIGHT BREAST LATERAL FINE NEEDLE ASPIRATION CONTINUED ON NEXT PAGE * ML=Testing performed at Main Lab DEPARTMENT OF PATHOLOGY, [address] [place] [address] Amarjit Kennedy M.D. Director [facility] # [id number] RUN DATE: 11/27/16 [facility] LAB LIVE PAGE 2 Patient: NERY POWERS [id number] (Continued) CLINICAL HISTORY (Continued) CLINICAL HISTORY #1) Right breast, medial. #2) Right breast, lateral. GROSS DESCRIPTION #1) 2 Alcohol fixed slide(s) received from clinician and Needle rinse in CytoLyt solution for thin layer non-armament repairer test.(clear) #2) 2 Alcohol fixed slide(s) received from clinician and Needle rinse in CytoLyt solution for thin layer non-armament repairer test.(clear) Signed (signature on file) Amarjit Kennedy MD 1505 END OF REPORT * ML=Testing performed at Main Lab DEPARTMENT OF PATHOLOGY, [address] [place] [address] Amarjit Kennedy M.D. Director [facility] # [id number] 12 SEE RESULT BELOW Name: NERY POWERS : [address]: Sarah Garcia MD Acct: [id number] Unit: [id number] AGE: 56 Location: [facility] Re11/26/16 SEX: F Status: REG REF SPEC: [id number] RAMON: 11/26/16-15[address] [facility] [address]: Sarah Garcia MD REQ: [id number] RECD: 11/26/16-8937 STATUS: SOUT _ ORDERED: ESTRO REC ST, LEVEL IV, CBU2DM-VTP, PRAS-ADD COMMENTS: [id number] Addendum: The following immunochemical stains are performed with appropriate controls. ER positive, 3+, greater than 90% of tumor WI negative in tumor. HER-2 negative, 0+ Addendum Signed (signature on file) Amarjit Kennedy MD 1139 FINAL DIAGNOSIS Breast, right, medial, core biopsy: -- Invasive ductal adenocarcinoma of breast, with: Size: 7.5 mm. Tumor extent and distribution: Diffusely involves 2 of 3 sampled cores. Estimated Ravalli grade: Estimated tubule formation: 3. Estimated nuclear grade: 2. Estimated mitotic count: 2. Combined Wilbert histologic grade: 2. (7/9 points). Lymphovascular invasion: Present. Ductal Carcinoma in situ (DCIS): Not identified. ER, WI, and Her2/Michele by immunohistochemistry with appropriate controls: ER: Pending; results will be reported in an addendum. WI: Pending; results will be reported in an addendum. Her2/Michele: Pending; results will be reported in an addendum. Microcalcifications: Not identified. Other findings: None. Predicted pTNM histopathologic stage: at least pT1b. COMMENT: CONTINUED ON NEXT PAGE * ML=Testing performed at Main Lab DEPARTMENT OF PATHOLOGY, [address] [place] [address] Amarjit Kennedy M.D. Director [facility] # [id number] RUN DATE: 11/28/16 [facility] LAB LIVE PAGE 2 Patient: NERY POWERS [id number] (Continued) SPECIMEN COMMENTS (Continued) Dr. Kennedy reviewed this case in intradepartmental consultation and agrees with the diagnosis. CLINICAL HISTORY No history given GROSS DESCRIPTION The specimen is received in formalin labeled, Core Biopsy-Right Breast Medial , and consists of a 2.5 x 0.4 cm aggregate of [id number] fibrofatty soft tissue cores , which are filtered and entirely submitted in one cassette. Signed (signature on file) Debora Stewart MD 1043 END OF REPORT * ML=Testing performed at Main Lab DEPARTMENT OF PATHOLOGY, [address] [place] [address] Amarjit Kennedy M.D. Director [facility] # [id number] 13 Because ethnic data is not always readily available, this report includes an eGFR for both -Americans and non- Americans. The National Kidney Disease Education Program (NKDEP) does not endorse the use of the MDRD equation for patients that are not between the ages of 18 and 70, are , have extremes of body size, muscle mass, or nutritional status, or are non- or non-. According to the National Kidney Foundation, irrespective of diagnosis, the stage of the disease is based on the level of kidney function: Stage Description GFR(mL/min/1.73 m(2)) 1 Kidney damage with normal or decreased GFR 90 2 Kidney damage with mild decrease in GFR 60-89 3 Moderate decrease in GFR 30-59 4 Severe decrease in GFR 15-29 5 Kidney failure <15 (or dialysis) 14 Acute inflammation: >10.00 15 NOTE: Critical Troponin is now >0.03 ng/mL. 99th percentile=0.04 ng/mL Troponin results at [facility] and [facility] are not interchangeable. 16 Desirable <150 Borderline high 150-199 High 200-499 Very High >500 17 Desirable <200 Borderline high 200-239 High >239 18 Low <40 Desirable: 40-60 High: >60 19 Desirable: <100 mg/dL Near Optimal: 100-129 mg/dL Borderline High: 130-159 mg/dL High: 160-189 mg/dL Very High: >189 mg/dL 20 Because ethnic data is not always readily available, this report includes an eGFR for both -Americans and non- Americans. The National Kidney Disease Education Program (NKDEP) does not endorse the use of the MDRD equation for patients that are not between the ages of 18 and 70, are , have extremes of body size, muscle mass, or nutritional status, or are non- or non-. According to the National Kidney Foundation, irrespective of diagnosis, the stage of the disease is based on the level of kidney function: Stage Description GFR(mL/min/1.73 m(2)) 1 Kidney damage with normal or decreased GFR 90 2 Kidney damage with mild decrease in GFR 60-89 3 Moderate decrease in GFR 30-59 4 Severe decrease in GFR 15-29 5 Kidney failure <15 (or dialysis) 21 PLEASE GET BLOOD WORK DONE SOON POSSIBLE 22 PLEASE GET BLOOD WORK DONE SOON POSSIBLE 23 PLEASE GET BLOOD WORK DONE SOON POSSIBLE 24 SEE RESULT BELOW Name: NERY POWERS : [address]: Breanna Prieto MD Acct: [id number] Unit: [id number] AGE: 54 Location: [facility] Re01/12/15 SEX: F Status: REG REF SPEC: [id number] RAMON: 01/12/15-1440 [facility] [address]: Breanna Prieto MD REQ: [id number] RECD: 01/12/15 STATUS: SOUT _ ORDERED: IMAGE ANALYSIS, HPV/Thin Prep FINAL DIAGNOSIS Negative for Intraepithelial lesion or Malignancy A. Ectocervical/Endocervical Specimen Adequacy: Satisfactory of evaluation Transformation zone component identified Patient Information: HPV: High risk HPV RNA testing regardless of pap results. Actual Specimen Date: 01/12/15 LMP If Unknown: unknown ?: N Post Menopausal?: Y Hysterectomy?: N Previous Abnormal Pap Smears?:N Date Time Test Result Flag (u) Normal Range 01/12/15 1440 HPV RNA Negative Negative The high-risk HPV types detected by the assay include: 16, 18, 31, 33, 35, 39, 45, 51, 52, 56, 58, 59, 66, and 68. Signed (signature on file) CARLOS Abrams (ASCP) 01/13 1418 This Pap test was evaluated with the assistance of the [employer] Test Imaging System. Due to cytologic findings at the tire fixer microscope, comprehensive manual rescreening by a Sports Analyst may be required. The Pap Smear is a screening test designed to aid in the detection of premalignant and malignant conditions of the uterine cervix. It is not a diagnostic procedure and should not be used as the sole means of detecting cervical cancer. Both false- positive and false- negative reports do occur. Depending on your risk status, a Pap smear should be obtained and evaluated every 1-3 years. END OF REPORT * ML=Testing performed at Main Lab DEPARTMENT OF PATHOLOGY, [address] [place] [address] Amarjit Kennedy M.D. Director [facility] # [id number] 25 The high-risk HPV types detected by the assay include: 16, 18, 31, 33, 35, 39, 45, 51, 52, 56, 58, 59, 66, and 68. 26 Because ethnic data is not always readily available, this report includes an eGFR for both -Americans and non- Americans. The National Kidney Disease Education Program (NKDEP) does not endorse the use of the MDRD equation for patients that are not between the ages of 18 and 70, are , have extremes of body size, muscle mass, or nutritional status, or are non- or non-. According to the National Kidney Foundation, irrespective of diagnosis, the stage of the disease is based on the level of kidney function: Stage Description GFR(mL/min/1.73 m(2)) 1 Kidney damage with normal or decreased GFR 90 2 Kidney damage with mild decrease in GFR 60-89 3 Moderate decrease in GFR 30-59 4 Severe decrease in GFR 15-29 5 Kidney failure <15 (or dialysis) 27 Desirable <150 Borderline high 150-199 High 200-499 Very High >500 28 Desirable <200 Borderline high 200-239 High >239 29 Low <40 Desirable: 40-60 High: >60 30 Desirable: <100 mg/dL Near Optimal: 100-129 mg/dL Borderline High: 130-159 mg/dL High: 160-189 mg/dL Very High: >189 mg/dL 31 -- REFERENCE VALUE -- 25-HYDROXY D TOTAL (D2+D3) Optimum levels in the healthy population are 20-50, patients with bone disease may benefit from higher levels within this range. Test Performed by: [place] [address] Therapeutic Consultant: Akin Leonardo III, M.D. 32 RESULT: No apparent monoclonal protein on serum electrophoresis. Test Performed by: [place] [address] Therapeutic Consultant: Akin Leonardo III, M.D. 33 Normal Range 180 to 914 Indeterminate Range 145 to 180 Deficient Range <145 34 Because ethnic data is not always readily available, this report includes an eGFR for both -Americans and non- Americans. The National Kidney Disease Education Program (NKDEP) does not endorse the use of the MDRD equation for patients that are not between the ages of 18 and 70, are , have extremes of body size, muscle mass, or nutritional status, or are non- or non-. According to the National Kidney Foundation, irrespective of diagnosis, the stage of the disease is based on the level of kidney function: Stage Description GFR(mL/min/1.73 m(2)) 1 Kidney damage with normal or decreased GFR 90 2 Kidney damage with mild decrease in GFR 60-89 3 Moderate decrease in GFR 30-59 4 Severe decrease in GFR 15-29 5 Kidney failure <15 (or dialysis) 35 FASTING 10 HOUR 36 HDL Interpretation: Undesirable: High Risk: Less than 40 mg/dL Desirable: Low Risk: Greater than 60 mg/dL 37 LDL Interpretation: Low Risk Optimal Level: LDL Less than 100 mg/dL Near or Above Optimal: LDL 100-129 mg/dL Borderline High Risk: LDL 130-159 mg/dL High Risk: LDL 160-189 mg/dL Very High Risk: LDL Greater than 189 mg/dL 38 Because ethnic data is not always readily available, this report includes an eGFR for both -Americans and non- Americans. The National Kidney Disease Education Program (NKDEP) does not endorse the use of the MDRD equation for patients that are not between the ages of 18 and 70, are , have extremes of body size, muscle mass, or nutritional status, or are non- or non-. According to the National Kidney Foundation, irrespective of diagnosis, the stage of the disease is based on the level of kidney function: Stage Description GFR(mL/min/1.73 m(2)) 1 Kidney damage with normal or decreased GFR 90 2 Kidney damage with mild decrease in GFR 60-89 3 Moderate decrease in GFR 30-59 4 Severe decrease in GFR 15-29 5 Kidney failure <15 (or dialysis) 39 Anion gap measurement may be of limited value in the presence of any alkalosis, especially in a combined acid base disorder. . 40 A metabolite of Naproxen, O-desmethylnaproxen, has been shown to interfere with the Jendrassik-Kam method for measuring total bilirubin. Samples from patients who have taken Naproxen have shown spurious elevation in total bilirubin levels. 41 Because ethnic data is not always readily available, this report includes an eGFR for both -Americans and non- Americans. The National Kidney Disease Education Program (NKDEP) does not endorse the use of the MDRD equation for patients that are not between the ages of 18 and 70, are , have extremes of body size, muscle mass, or nutritional status, or are non- or non-. According to the National Kidney Foundation, irrespective of diagnosis, the stage of the disease is based on the level of kidney function: Stage Description GFR(mL/min/1.73 m(2)) 1 Kidney damage with normal or decreased GFR 90 2 Kidney damage with mild decrease in GFR 60-89 3 Moderate decrease in GFR 30-59 4 Severe decrease in GFR 15-29 5 Kidney failure <15 (or dialysis) 42 New Reference Range and Interpretation effective 06/05/2002 TnI (ng/ml) INTERPRETATION Less Than 0.06 ng/mL NOT SUPPORTIVE OF DIAGNOSIS OF AR 0.06 - 0.50 ng/ml INDETERMINATE: SUGGEST SERIAL STUDIES IF CLINICALLY INDICATED. Greater than 0.5 ng/mL CONSISTENT WITH DIAGNOSIS OF AR . 43 Recommended INR for Patients on Oral Anticoagulants Prophylaxis 2.0 - 3.0 Treatment of thrombosis 2.0 - 3.0 Prevention of embolism 2.0 - 3.0 Prevention of embolism from prosthetic heart valves 2.5 - 3.5 44 DIAGNOSIS,TREATMENT,AND THERAPY MUST BE BASED ON THE INR VALUE ALONE. 45 FASTING 46 CHOLESTEROL INTERPRETATION: Desirable: Less than 200 MG/DL Borderline-High Risk: 200-239 MG/DL High-Risk: 240 MG/DL and over 47 HDL INTERPRETATION: Undesirable: High Risk: Less than 40 MG/DL Desirable: Low Risk: Greater than 60 MG/DL 48 LDL INTERPRETATION: Low Risk Optimal Level: LDL Less than 100 MG/DL Near or Above Optimal: LDL 100-129 MG/DL Borderline High Risk: LDL 130-159 MG/DL High Risk: LDL 160-189 MG/DL Very High Risk: LDL Greater than 189 MG/DL 49 Anion gap measurement may be of limited value in the presence of any alkalosis, especially in a combined acid base disorder. . 50 A metabolite of Naproxen, O-desmethylnaproxen, has been shown to interfere with the Jendrassik-Kam method for measuring total bilirubin. Samples from patients who have taken Naproxen have shown spurious elevation in total bilirubin levels. 51 Because ethnic data is not always readily available, this report includes an eGFR for both -Americans and non- Americans. The National Kidney Disease Education Program (NKDEP) does not endorse the use of the MDRD equation for patients that are not between the ages of 18 and 70, are , have extremes of body size, muscle mass, or nutritional status, or are non- or non-. According to the National Kidney Foundation, irrespective of diagnosis, the stage of the disease is based on the level of kidney function: Stage Description GFR(mL/min/1.73 m(2)) 1 Kidney damage with normal or decreased GFR 90 2 Kidney damage with mild decrease in GFR 60-89 3 Moderate decrease in GFR 30-59 4 Severe decrease in GFR 15-29 5 Kidney failure <15 (or dialysis) 52 Anion gap measurement may be of limited value in the presence of any alkalosis, especially in a combined acid base disorder. . 53 A metabolite of Naproxen, O-desmethylnaproxen, has been shown to interfere with the Jendrassik-Prentice method for measuring total bilirubin. Samples from patients who have taken Naproxen have shown spurious elevation in total bilirubin levels. 54 Because ethnic data is not always readily available, this report includes an eGFR for both -Americans and non- Americans. The National Kidney Disease Education Program (NKDEP) does not endorse the use of the MDRD equation for patients that are not between the ages of 18 and 70, are , have extremes of body size, muscle mass, or nutritional status, or are non- or non-. According to the National Kidney Foundation, irrespective of diagnosis, the stage of the disease is based on the level of kidney function: Stage Description GFR(mL/min/1.73 m(2)) 1 Kidney damage with normal or decreased GFR 90 2 Kidney damage with mild decrease in GFR 60-89 3 Moderate decrease in GFR 30-59 4 Severe decrease in GFR 15-29 5 Kidney failure <15 (or dialysis) 55 CHOLESTEROL INTERPRETATION: Desirable: Less than 200 MG/DL Borderline-High Risk: 200-239 MG/DL High-Risk: 240 MG/DL and over 56 HDL INTERPRETATION: Undesirable: High Risk: Less than 40 MG/DL Desirable: Low Risk: Greater than 60 MG/DL 57 LDL INTERPRETATION: Low Risk Optimal Level: LDL Less than 100 MG/DL Near or Above Optimal: LDL 100-129 MG/DL Borderline High Risk: LDL 130-159 MG/DL High Risk: LDL 160-189 MG/DL Very High Risk: LDL Greater than 189 MG/DL 58 The detection limit for VALPROIC ACID is 10.0 mcg/ml . Values less than 10.0 mcg/ml cannot be accurately measured. . 59 THERAPEUTIC TARGET FOR THE TREATMENT OF DIABETES MELLITUS PATIENTS IS <7% HBA1C, AND IN SELECTIVE PATIENTS <6.0%. PLEASE REFER TO [place] [employer] DIABETIC CARE GUIDELINES FOR FURTHER INFORMATION. 60 Anion gap measurement may be of limited value in the presence of any alkalosis, especially in a combined acid base disorder. . 61 A metabolite of Naproxen, O-desmethylnaproxen, has been shown to interfere with the Jendrassik-Prentice method for measuring total bilirubin. Samples from patients who have taken Naproxen have shown spurious elevation in total bilirubin levels. 62 Because ethnic data is not always readily available, this report includes an eGFR for both -Americans and non- Americans. The National Kidney Disease Education Program (NKDEP) does not endorse the use of the MDRD equation for patients that are not between the ages of 18 and 70, are , have extremes of body size, muscle mass, or nutritional status, or are non- or non-. According to the National Kidney Foundation, irrespective of diagnosis, the stage of the disease is based on the level of kidney function: Stage Description GFR(mL/min/1.73 m(2)) 1 Kidney damage with normal or decreased GFR 90 2 Kidney damage with mild decrease in GFR 60-89 3 Moderate decrease in GFR 30-59 4 Severe decrease in GFR 15-29 5 Kidney failure <15 (or dialysis) 63 Please note updated reference range, effective 03/23/10 64 The detection limit for VALPROIC ACID is 10.0 mcg/ml . Values less than 10.0 mcg/ml cannot be accurately measured. . 65 TOXIC LEVELS: GREATER THAN 150 MCG/ML @ 4HR POST INGEST GREATER THAN 50 MCG/ML @ 12HR POST INGEST The detection limit for ACETAMINOPHEN is 10.0 mcg/ml . Values less than 10.0 mcg/ml cannot be accurately measured. . 66 The detection limit for ETHANOL is 10.0 mg/dl . Values less than 10.0 mg/dl cannot be accurately measured. . 67 The detection limit for SALICYLATE is 4.0 mg/dl. Values less than 4.0 mg/dl cannot be accurately measured. . 68 Anion gap measurement may be of limited value in the presence of any alkalosis, especially in a combined acid base disorder. . 69 A metabolite of Naproxen, O-desmethylnaproxen, has been shown to interfere with the Sumeet- method for measuring total bilirubin. Samples from patients who have taken Naproxen have shown spurious elevation in total bilirubin levels. 70 Because ethnic data is not always readily available, this report includes an eGFR for both -Americans and non- Americans. The National Kidney Disease Education Program (NKDEP) does not endorse the use of the MDRD equation for patients that are not between the ages of 18 and 70, are , have extremes of body size, muscle mass, or nutritional status, or are non- or non-. According to the National Kidney Foundation, irrespective of diagnosis, the stage of the disease is based on the level of kidney function: Stage Description GFR(mL/min/1.73 m(2)) 1 Kidney damage with normal or decreased GFR 90 2 Kidney damage with mild decrease in GFR 60-89 3 Moderate decrease in GFR 30-59 4 Severe decrease in GFR 15-29 5 Kidney failure <15 (or dialysis) 71 THE URINE SPECIMEN WAS TESTED AT THE LISTED CUTOFFS: DRUG CLASS TEST LEVEL (NG/ML) AMPHETAMINES 300 BARBITUATES 200 BENZODIAZEPINE METABOLITES 200 COCAINE METABOLITES 300 CANNABINOIDS 25 OPIATES 200 PCP 25 THIS IS A SCREENING PROCEDURE. POSITIVE RESULTS ARE NOT CONFIRMED. SPECIMEN WAS RECEIVED WITHOUT CHAIN OF CUSTODY. RESULTS SHOULD BE USED FOR MEDICAL PURPOSES ONLY. . 72 Anion gap measurement may be of limited value in the presence of any alkalosis, especially in a combined acid base disorder. . 73 Note change in reference range as of 04/22/08. The change was based on recommendations from the [place] [employer]. 74 A metabolite of Naproxen, O-desmethylnaproxen, has been shown to interfere with the Jendrassik-Kam method for measuring total bilirubin. Samples from patients who have taken Naproxen have shown spurious elevation in total bilirubin levels. 75 Because ethnic data is not always readily available, this report includes an eGFR for both -Americans and non- Americans. The National Kidney Disease Education Program (NKDEP) does not endorse the use of the MDRD equation for patients that are not between the ages of 18 and 70, are , have extremes of body size, muscle mass, or nutritional status, or are non- or non-. According to the National Kidney Foundation, irrespective of diagnosis, the stage of the disease is based on the level of kidney function: Stage Description GFR(mL/min/1.73 m(2)) 1 Kidney damage with normal or decreased GFR 90 2 Kidney damage with mild decrease in GFR 60-89 3 Moderate decrease in GFR 30-59 4 Severe decrease in GFR 15-29 5 Kidney failure <15 (or dialysis) 76 New Reference Range and Interpretation effective 06/05/2002 TnI (ng/ml) INTERPRETATION Less Than 0.06 ng/mL NOT SUPPORTIVE OF DIAGNOSIS OF AR 0.06 - 0.50 ng/ml INDETERMINATE: SUGGEST SERIAL STUDIES IF CLINICALLY INDICATED. Greater than 0.5 ng/mL CONSISTENT WITH DIAGNOSIS OF AR . 77 The detection limit for VALPROIC ACID is 10.0 mcg/ml . Values less than 10.0 mcg/ml cannot be accurately measured. . 78 TOXIC LEVELS: GREATER THAN 150 MCG/ML @ 4HR POST INGEST GREATER THAN 50 MCG/ML @ 12HR POST INGEST The detection limit for ACETAMINOPHEN is 10.0 mcg/ml . Values less than 10.0 mcg/ml cannot be accurately measured. . 79 The detection limit for ETHANOL is 10.0 mg/dl . Values less than 10.0 mg/dl cannot be accurately measured. . 80 The detection limit for SALICYLATE is 4.0 mg/dl. Values less than 4.0 mg/dl cannot be accurately measured. . 81 SCANT NORMAL URETHRAL OR PERINEAL JOHN 82 CHOLESTEROL INTERPRETATION: Desirable: Less than 200 MG/DL Borderline-High Risk: 200-239 MG/DL High-Risk: 240 MG/DL and over 83 HDL INTERPRETATION: Undesirable: High Risk: Less than 40 MG/DL Desirable: Low Risk: Greater than 60 MG/DL 84 LDL INTERPRETATION: Low Risk Optimal Level: LDL Less than 100 MG/DL Near or Above Optimal: LDL 100-129 MG/DL Borderline High Risk: LDL 130-159 MG/DL High Risk: LDL 160-189 MG/DL Very High Risk: LDL Greater than 189 MG/DL 85 Anion gap measurement may be of limited value in the presence of any alkalosis, especially in a combined acid base disorder. . 86 Note change in reference range as of 04/22/08. The change was based on recommendations from the [place] [employer]. 87 Please note change in reference range effective 08 . 88 A metabolite of Naproxen, O-desmethylnaproxen, has been shown to interfere with the Jendrassik-Kam method for measuring total bilirubin. Samples from patients who have taken Naproxen have shown spurious elevation in total bilirubin levels. 89 Because ethnic data is not always readily available, this report includes an eGFR for both -Americans and non- Americans. The National Kidney Disease Education Program (NKDEP) does not endorse the use of the MDRD equation for patients that are not between the ages of 18 and 70, are , have extremes of body size, muscle mass, or nutritional status, or are non- or non-. According to the National Kidney Foundation, irrespective of diagnosis, the stage of the disease is based on the level of kidney function: Stage Description GFR(mL/min/1.73 m(2)) 1 Kidney damage with normal or decreased GFR 90 2 Kidney damage with mild decrease in GFR 60-89 3 Moderate decrease in GFR 30-59 4 Severe decrease in GFR 15-29 5 Kidney failure <15 (or dialysis) 90 ICTOTEST IS A QUALITATIVE CONFIRMATORY TEST FOR BILIRUBIN. Procedures Date CPT Code Description Status 09/17/2017 72899 Removal Tunneled Central Venous Access Dev W/Sub Completed Port/Pump 08/13/2017 Bone Mineral Density Test Completed 01/18/2017 84809 Fluoroscopic Guidance For Cent Completed 01/18/2017 60552 Insertion Tunneled Cent Venous Cathr W Subcut Port 5 Completed Yrs Or Oldr 01/18/2017 91095 Insertion Tunneled Cent Venous Cathr W Subcut Port 5 Completed Yrs Or Oldr 01/18/2017 78984 Mastectomy Mod Radical Not Including Pectoralis Major Completed Muscle 01/18/2017 63919 Mastectomy Mod Radical Not Including Pectoralis Major Completed Muscle 01/16/2017 58508 ECHO Transthoracic, Real-Time 2D With Doppler And Color Completed Flow 01/04/2017 06763 Biopsy/Excision Deep Axillary Node(S) Completed 01/04/2017 37614 Mastectomy Partial Completed 01/04/2017 Mammogram Completed 11/26/2016 97492 Fine Needle Aspiration; W/O Imaging Guidance Completed 11/26/2016 29816 Fine Needle Aspiration; W/O Imaging Guidance Completed 10/25/2016 Mammogram Completed 04/22/2015 Mammogram Completed 02/22/2015 99448 Diffusing Capacity Completed 02/22/2015 02062 Plethysmography Determination Lung Volumes & Per Completed Airway Resist 02/22/2015 17231 Pulmonary Function><Bronchodil Completed 02/18/2014 Bone Mineral Density Test Completed 01/19/2014 88872 Nerve Conduction 03-04 Studies Completed 06/04/2013 02538 Extremity Studies-Bilateral Completed 05/05/2013 62012 Myocardial Perfusion Imaging Tomographic (Spect) Completed Multiple Studies 05/05/2013 39847 Stress Test Completed 03/27/2013 65625 ECHO Transthoracic, Real-Time 2D With Doppler And Color Completed Flow 01/22/2013 81301 EKG Tracing & Interpretation Completed 12/18/2012 Colonoscopy Completed 01/15/2012 Mammogram Completed 09/20/2010 42578 ECHO Stress Test Incl Perf Contiuous ekg Monitoring Completed W/Phys Superv 08/01/2010 41208 EKG, Interpretation Only Completed 10/20/2008 Mammogram Completed Encounters Type Date Location Provider CPT E/M Dx Office Visit 09/03/2017 [facility] Breanna Prieto M.D. 06653 H91.92 11:50a - [place] E03.9 Z13.1 Office Visit 01/15/2017 1:00p [facility] Breanna Prieto 02733 R21 - [place] Blank Office Visit 01/08/2017 1:40p [facility] Breanna Prieto 17796 C50.411 - [place] Blank Z12.4 I80.8 Office Visit 11/30/2016 11:00a [facility], 69281 C50.411 [facility] Office Visit 11/26/2016 2:30p [facility], 93612 N63 [facility] Office Visit 11/22/2016 1:20p [facility] Landon Sweeney, 23074 E03.8 - [place] Blank K21.9 M79.676 Office Visit 08/23/2016 1:40p [facility] Breanna Prieto M.D. 69502 E03.8 - [place] I10 Z12.39 K21.9 L65.0 S33.5xxA Z23 F31.9 E66.9 R25.1 Office Visit 01/12/2015 1:10p [facility] Breanna Prieto, 04345 V72.31 - Oren Blank V03.82 V06.1 V76.2 272.1 V76.10 244.8 Office Visit 05/13/2014 10:30a [facility] Breanna Prieto M.D. 82320 401.1 - Oren 493.00 054.9 V76.51 Office Visit 02/12/2014 3:40p [facility] Nery Gottlieb M.D. 90593 493.00 - Oren 461.9 Office Visit 01/07/2014 3:40p [facility] Bari Penn, 04062 493.00 - Oren Blank,FACP 401.1 296.80 627.9 733.02 719.46 054.9 V03.82 Office Visit 08/17/2013 3:10p [facility] Breanna Prieto, 19629 296.80 - [place] M.D. 401.1 Office Visit 07/20/2013 1:20p [facility] Kev Larry, 74320 401.9 - [place] M.D. 272.1 530.81 493.00 729.2 V04.81 Office Visit 06/15/2013 1:30p [facility] Batres Pleitez, 32474 440.21 [employer] Sumi.Ruben, FAC, FASNC 786.50 Office Visit 03/30/2013 2:45p [facility] Batres Pleitez, 13074 443.9 [employer] Sumi.Elena., FACC, FASNC 786.50 Office Visit 03/09/2013 10:00a [facility] Kev Larry, 97756 401.9 - [place] M.D. 244.9 493.00 530.81 Office Visit 01/22/2013 9:15a [facility] Mikhail Batres Pleitez, 55188 786.50 [employer] Rosamaria, FACC, FASNC 443.9 Office Visit 11/19/2012 1:20p [facility] Kev Larry, 93317 401.9 - [place] M.D. 530.81 493.00 244.9 272.1 V70.0 278.00 296.80 Office Visit 07/30/2012 2:20p [facility] Kev Larry, 17835 346.92 Medicine - [place] M.DRichar 401.9 493.00 530.81 Office Visit 05/13/2012 2:40p [facility] Kev Larry, 40056 401.9 - [place] M.D. 493.00 287.5 530.81 346.92 V04.81 715.00 Office Visit 04/01/2012 8:30a [facility] Breanna Prieto, 23396 E929.3 - [place] M.D. 386.11 493.90 Office Visit 12/25/2011 3:40p [facility] Kev Larry, 62491 272.1 - [place] M.D. 244.9 493.90 530.81 287.5 477.0 V76.10 786.50 346.92 Office Visit 10/01/2011 2:00p [facility] Breanna Prieto, 95489 V58.69 - Oren Blank 296.80 Office Visit 09/05/2011 3:20p [facility] Landon Sweeney, 17642 388.70 - Oren Blank 786.50 V04.81 Office Visit 04/04/2011 1:40p DO Not Use [employer] [facility] [employer] [facility], 71224 530.81 [place] M.D. 786.50 244.9 287.5 788.1 Office Visit 12/13/2010 2:20p DO Not Use [employer] [facility], 23896 464.00 [place] M.D. 786.59 287.5 530.81 493.00 Office Visit 09/20/2010 3:30p [facility] Mehdi Allison, 11103 493.00 M.D. 786.50 278.01 Office Visit 08/09/2010 2:40p DO Not Use [employer] [facility], 47061 493.00 [place] M.D. 530.81 244.9 477.9 287.5 276.8 794.31 272.4 Office Visit 12/22/2009 3:00p DO Not Use [facility], 68777 296.80 [place] M.D. 295.72 244.9 530.81 596.59 Office Visit 11/21/2009 1:00p DO Not Use [employer] [facility] At [facility], 06799 296.80 [place] M.D. 295.72 244.9 493.00 596.59 530.81 Office Visit 10/20/2009 3:00p DO Not Use [employer] [facility], 28532 296.80 [place] M.D. 295.72 244.9 493.00 596.59 530.81 Plan of Care Future Appointment(s):01/01/2018 2:20 pm - Breanna Prieto M.D. at [facility] - Eriwcpagg51/06/2018 - Altaf Ernandez, NPR21 Rash and other nonspecific skin eruptionNew Medication:Triamcinolone Acetonide 0.5 %Comments: Start applying the steroid cream twice daily. If this is not improving or getting worse let me know.You can use cool compresses or ice which may help the itch.You can take benadryl for the itch. Avoid necklaces and shirts with tight collars until this resolves.
--- NOTE | 2017-12-20 16:47 | ED ---
Rasta Kulkarni Jennifer, scribed for Thomas Singer MD on 12/20/17 at 1556 . Head Injury - HPI Summary HPI Summary: The patient is a 57 year old female who was brought to the ED by ambulance after she fell in the shower and hit her head four hours ago. She reports she felt dizzy and had a headache before the ambulance arrived, but she was given an ice pack which helped her symptoms. The patient denies loss of conscious and is alert and oriented. She adds that the back of her head hurts a little, which is aggravated when she gets a headache. She denies neck pain. - History Of Current Complaint Stated Complaint: FALL/HEAD INJURY Time Seen by Provider: 12/20/17 15:40 Hx Obtained From: Patient Mechanism Of Injury: Fall From A Standing Position Onset/Duration: Started Hours Ago - 4 hours, Still Present - head hurts a little Onset of Pain: Immediate Severity Currently: Mild Severity Initially: Mild Location of Head Injury: Other: - back of head Aggravating Factor(s): Other: - headache Associated Signs And Symptoms: Other: - dizzy, lightheaded, back of head hurts. NEGATIVE: neck pain - Allergies/Home Medications Allergies/Adverse Reactions: Allergies Allergy/AdvReac Type Severity Reaction Status Date / Time MS Fluoxetine [From Prozac] Allergy Severe SEIZURE-LIKE Verified 01/24/17 14:42 ACTIVITY MS Fluphenazine Allergy Severe See Comment Verified 01/24/17 14:42 [From Prolixin] MS Miconazole [From Monistat] Allergy Severe LEAKING Verified 01/24/17 14:42 BLADDER MS Penicillins [Penicillins] Allergy Severe Hives Verified 01/24/17 14:42 MS Sulfa Drugs [Sulfa Drugs] Allergy Severe Hives Verified 01/24/17 14:42 PMH/Surg Hx/FS Hx/Imm Hx Endocrine/Hematology History: Reports: Hx Thyroid Disease - ON MEDS PT. STATES CONTROLLED Denies: Hx Diabetes Cardiovascular History: Reports: Hx Hypertension - ON MEDS PT STATES CONTROLLED Denies: Hx Pacemaker/ICD Respiratory History: Reports: Hx Asthma GI History: Reports: Hx Gastroesophageal Reflux Disease - HX OF TAKES MEDS PRN History: Denies: Hx Dialysis, Hx Renal Disease Musculoskeletal History: Reports: Hx Arthritis - BILAT HIPS POSS BILAT KNEES Denies: Hx Osteoporosis Sensory History: Reports: Hx Contacts or Glasses - GLASSES Denies: Hx Hearing Aid Opthamlomology History: Reports: Hx Contacts or Glasses - GLASSES Neurological History: Reports: Hx Headaches, Hx Migraine - HX OF, Hx Seizures - on MEDS PT. STATES CONTROLLED, Other Neuro Impairments/Disorders Psychiatric History: Reports: Hx Anxiety, Hx Depression Denies: Hx Panic Disorder - Cancer History Cancer Type, Location and Year: Rt BREAST Hx Chemotherapy: No - NOT YET Hx Radiation Therapy: No - NOT YET - Surgical History Surgery Procedure, Year, and Place: TUBAL [id number], CERVICAL SURGERY FOR DYSPLASIA 1985, WISDOM TEETH EXTRACTION 1982, BILAT CARPAL TUNNEL 2001, right breast lumpectomy 01/04/2017. 01/18/17 - Rt MASTECTOMY W/COMPLETE - AXILLARY DISSECTION OF LYMPHNODES & POWER PORT PLACEMENT @ [facility] [place] WECK/HEMOCLIPS USED - COND 6 UP TO 3T, CAN SCAN IMMEDIATELY AFTER IMPLANTATION Hx Anesthesia Reactions: No Infectious Disease History: Reports: Hx Shingles - Family History Known Family History: Positive: Other - Breast CA - Social History Alcohol Use: None Substance Use Type: Reports: None Hx Tobacco Use: No Smoking Status (MU): Never Smoked Tobacco Review of Systems Musculoskeletal: Negative - Neck pain Positive: Other - back of head hurts Neurological: Other - Dizzy Positive: Headache All Other Systems Reviewed And Are Negative: Yes Physical Exam - Summary Physical Exam Summary: Appearance: The patient is well-nourished in no acute distress and in no acute pain. Skin: The skin is warm and dry and skin color reflects adequate perfusion. HEENT: There is a cephalohematoma in the left posterior crown. The pupils are equal and reactive. The conjunctivae are clear and without drainage. Nares are patent and without drainage. Mouth reveals moist mucous membranes and the throat is without erythema and exudate. The external ears are intact. The ear canals are patent and without drainage. The tympanic membranes are intact. Neck: the neck is supple with full range of motion and non-tender. There are no carotid bruits. There is no neck vein distension. Respiratory: Chest is non-tender. Lungs are clear to auscultation and breath sounds are symmetrical and equal. Cardiovascular: Heart is regular rate and rhythm. There is no murmur or rub auscultated. There is no peripheral edema and pulses are symmetrical and equal. Abdomen: The abdomen is soft and non-tender. There are normal bowel sounds heard in all four quadrants and there is no organomegaly palpated. Musculoskeletal: There is no back tenderness noted. Extremities are non-tender with full range of motion. There is good capillary refill. There is no peripheral edema or calf tenderness elicited. Neurological: Patient is alert and oriented to person, place and time. The patient has symmetrical motor strength in all four extremities. Cranial nerves are grossly intact. Deep tendon reflexes are symmetrical and equal in all four extremities. Psychiatric: The patient has an appropriate affect and does not exhibit any anxiety or depression. Triage Information Reviewed: Yes Vital Signs On Initial Exam: Initial Vitals Temp Pulse Resp BP Pulse Ox 98.7 F 82 14 135/86 98 12/20/17 15:52 12/20/17 15:52 12/20/17 15:52 12/20/17 15:52 12/20/17 15:52 Vital Signs Reviewed: Yes Diagnostics - Vital Signs Vital Signs Temp Pulse Resp BP Pulse Ox 12/20/17 15:52 98.7 F 82 14 135/86 98 - Laboratory Lab Statement: Any lab studies that have been ordered have been reviewed, and results considered in the medical decision making process. Head Injury Course/Dx Course Of Treatment: Ms. Powers felt fine when she got to the ED. She had a cephalohematoma where she hit her head but no other findings. She no longer had a GREEN or other symptoms and is not on any blood thinners including ASA. - Diagnoses Provider Diagnoses: Head injury Discharge - Sign-Out/Discharge Documenting (check all that apply): Discharge - Discharge Plan Condition: Stable Disposition: HOME Patient Education Materials: Head Injury (ED) Referrals: Breanna Prieto MD [Primary Care Provider] - Additional Instructions: Follow up with your primary care physician in three days. Return to the emergency department for any new or worsening symptoms. - Billing Disposition and Condition Condition: STABLE Disposition: HOME The documentation as recorded by the Rasta ashton Jennifer accurately reflects the service I personally performed and the decisions made by me, Thomas Singer MD.
[2017-12-20 17:18] VITALS: BP 132/82
== END 2017-12-20 17:17 | disposition home or self-care (01) ==
LOC: ED 15:34
DX: S09.90XA Unspecified injury of head, initial encounter (principal); R42 Dizziness and giddiness; R51 Headache; W18.2XXA Fall in (into) shower or empty bathtub, initial encounter; Y93.E1 Activity, personal bathing and showering; Y92.9 Unspecified place or not applicable
CPT/HCPCS: 99282

== ENCOUNTER 2019-11-04 14:52 | Inpatient (IN) | payer OTHER ==
--- NOTE | 2019-11-04 16:01 | ED ---
Psychiatric Complaint - HPI Summary HPI Summary: Patient is a 59 y/o F presenting to [facility] for MHE of SI. Patient reports Hx of bipolar disorder, self-harm, and suicide attempt. She claims that she has self- harmed via cutting and attempted suicide by overdose on medications previously. Last overdose attempt was in 1999, last cutting episode was within the past year. She notes that she has been admitted to in-patient psych unit previously and believes that she would benefit from admission. Patient lives at home alone and states that she does not feel safe there. Patient states that she had a close ex-boyfriend in October 2019 due to cancer and also got into a verbal argument with a friend recently. Patient states that she does not have guns in her home. She claims Hx of HTN, GERD, asthma, breast cancer, lymphedema. Home medications and allergies are reviewed. No fever as vitals show temperature of 98.6 F. - History Of Current Complaint Chief Complaint: EDSuicidal Time Seen by Provider: 11/04/19 15:21 Hx Obtained From: Patient Onset/Duration: Still Present Timing: Constant Character: Depressed Aggravating Factor(s): Recent Stress Has Suicidal: Reports: Thoughts, Has Prior Attempt(s) - Allergies/Home Medications Allergies/Adverse Reactions: Allergies Allergy/AdvReac Type Severity Reaction Status Date / Time fluoxetine [From Prozac] Allergy See Comment Verified 11/04/19 15:05 fluphenazine [From Prolixin] Allergy See Comment Verified 11/04/19 15:05 miconazole Allergy See Comment Verified 11/04/19 15:05 Penicillins Allergy Hives Verified 11/04/19 15:05 Sulfa (Sulfonamide Allergy Hives Verified 11/04/19 15:05 Antibiotics) Home Medications: Home Medications Albuterol HFA INHALER* [Ventolin HFA Inhaler*] 2 puff INH Q6HR PRN 12/20/17 [ History Confirmed 11/04/19] Anastrozole (NF) [Arimidex (NF)] 1 mg PO DAILY 12/20/17 [History Confirmed 11/03] Cholecalciferol TAB* [Vitamin D TAB*] 1,000 unit PO DAILY 12/20/17 [History Confirmed 11/04/19] Divalproex ER TAB(*) [Depakote ER TAB(*)] 1,000 mg PO BID 12/20/17 [History Confirmed 11/05/19] Gabapentin CAP(*) [Neurontin 400 mg CAP(*)] 400 mg PO QAM 12/20/17 [History Confirmed 11/04/19] Gabapentin CAP(*) [Neurontin 400 mg CAP(*)] 800 mg PO QPM 12/20/17 [History Confirmed 11/04/19] Levothyroxine TAB* [Synthroid TAB*] 50 mcg PO DAILY 12/20/17 [History Confirmed 11/04/19] Metoprolol Succinate XL TAB* [Toprol XL TAB*] 50 mg PO DAILY 12/20/17 [History Confirmed 11/04/19] Mirtazapine TAB* [Remeron TAB*] 30 mg PO BEDTIME 12/20/17 [History Confirmed 12/20] [place]-3 Fatty Acids (Nf) [Fish Oil (NF)] 1,000 mg PO DAILY 12/20/17 [History Confirmed 11/04/19] Cyanocobalamin TAB* [Vitamin B12 TAB*] 1,000 mcg PO DAILY 11/04/19 [History Confirmed 11/04/19] Diclofenac Sodium 75 mg PO BID WITH MEALS 11/04/19 [History Confirmed 11/04/19] Fluticasone Furoate ELLIPTA(NF [Arnuity ELLIPTA (NF)] 200 mcg INH DAILY [History Confirmed 11/04/19] Rivaroxaban TAB(*) [Xarelto 15 mg(*)] 15 mg PO DAILY WITH MEAL 11/04/19 [ History Confirmed 11/04/19] Venlafaxine EXT RELEASE CAP* [Effexor Xr CAP*] 75 mg PO QAM 11/04/19 [History Confirmed 11/04/19] PMH/Surg Hx/FS Hx/Imm Hx Endocrine/Hematology History: Reports: Hx Thyroid Disease - ON MEDS PT. STATES CONTROLLED Denies: Hx Diabetes Cardiovascular History: Reports: Hx Hypertension - ON MEDS PT STATES CONTROLLED Denies: Hx Pacemaker/ICD Respiratory History: Reports: Hx Asthma GI History: Reports: Hx Gastroesophageal Reflux Disease - HX OF TAKES MEDS PRN History: Denies: Hx Dialysis, Hx Renal Disease Musculoskeletal History: Reports: Hx Arthritis - BILAT HIPS POSS BILAT KNEES Denies: Hx Osteoporosis Sensory History: Reports: Hx Contacts or Glasses - GLASSES Denies: Hx Hearing Aid Opthamlomology History: Reports: Hx Contacts or Glasses - GLASSES Neurological History: Reports: Hx Headaches, Hx Migraine - HX OF, Hx Seizures - on MEDS PT. STATES CONTROLLED, Other Neuro Impairments/Disorders Psychiatric History: Reports: Hx Anxiety, Hx Depression Denies: Hx Panic Disorder - Cancer History Cancer Type, Location and Year: Rt BREAST Hx Chemotherapy: Yes - ANESTROZOLE Hx Radiation Therapy: Yes - Surgical History Surgery Procedure, Year, and Place: TUBAL [id number], CERVICAL SURGERY FOR DYSPLASIA 1985, WISDOM TEETH EXTRACTION 1982, BILAT CARPAL TUNNEL 2001, right breast lumpectomy 01/04/2017. 01/18/17 - Rt MASTECTOMY W/COMPLETE - AXILLARY DISSECTION OF LYMPHNODES & POWER PORT PLACEMENT @ [facility] – [place]- WECK/HEMOCLIPS USED - COND 6 UP TO 3T, CAN SCAN IMMEDIATELY AFTER IMPLANTATION Hx Anesthesia Reactions: No Infectious Disease History: No Infectious Disease History: Reports: Hx Shingles Denies: Traveled Outside the [place] in Last 30 Days - Family History Known Family History: Positive: Other - Breast CA - Social History Alcohol Use: None Substance Use Type: Reports: None Hx Tobacco Use: No Smoking Status (MU): Never Smoked Tobacco Review of Systems Negative: Fever - No fever as vitals show temperature of 98.6 F. Positive: Other - SI All Other Systems Reviewed And Are Negative: Yes Physical Exam - Summary Physical Exam Summary: Constitutional: Well-developed, Well-nourished, Alert. (-) Distressed Skin: Warm, Dry HENT: Normocephalic; Atraumatic Eyes: Conjunctiva normal Neck: Musculoskeletal ROM normal neck. (-) JVD, (-) Stridor, (-) Tracheal deviation Cardio: Rhythm regular, rate normal, Heart sounds normal; Intact distal pulses; The pedal pulses are 2+ and symmetric. Radial pulses are 2+ and symmetric. (-) Murmur Pulmonary/Chest wall: Effort normal. (-) Respiratory distress, (-) Wheezes, (-) Rales Abd: Soft, (-) tenderness, (-) Distension, (-) Guarding, (-) Rebound Musculoskeletal: BLE and right arm edema Lymph: (-) Cervical adenopathy Neuro: Alert, Oriented x3 Psych: SI noted Triage Information Reviewed: Yes Vital Signs On Initial Exam: Initial Vitals Temp Pulse Resp BP Pulse Ox 98.6 F 95 16 134/94 95 11/04/19 14:54 11/04/19 14:54 11/04/19 14:54 11/04/19 14:54 11/04/19 14:54 Vital Signs Reviewed: Yes Procedures - Sedation Patient Received Moderate/Deep Sedation with Procedure: No Diagnostics - Vital Signs Vital Signs Temp Pulse Resp BP Pulse Ox 11/04/19 14:54 98.6 F 95 16 134/94 95 - Laboratory Result Diagrams: 11/04/19 16:05 11/04/19 16:05 Lab Statement: Any lab studies that have been ordered have been reviewed, and results considered in the medical decision making process. Course/Dx - Course Course Of Treatment: Patient is a 59 y/o F presenting to [facility] for MHE of SI. Patient reports Hx of bipolar disorder, self-harm, and suicide attempt. She claims that she has self-harmed via cutting and attempted suicide by overdose on medications previously. Last overdose attempt was in 1999, last cutting episode was within the past year. She notes that she has been admitted to in- patient psych unit previously and believes that she would benefit from admission. Patient lives at home alone and states that she does not feel safe there. Patient states that she had a close ex-boyfriend in October 2019 due to cancer and also got into a verbal argument with a friend recently. Patient states that she does not have guns in her home. She claims Hx of HTN, GERD, asthma, breast cancer, lymphedema. On physical exam, patient is noted to have BLE and right arm edema. Positive SI noted. Bloodwork was obtained. Tox screen was negative. Patient is signed out to Dr. Rutherford at 1900 11/04/19 shift change pending MHE. - Differential Dx/Clinical Impression Provider Diagnosis: Suicidal ideation, Bipolar disorder Discharge ED - Sign-Out/Discharge Documenting (check all that apply): Sign-Out Patient Signing out patient TO: Shikha Rutherford - Discharge Plan Condition: Stable Disposition: PSYCHIATRIC FACILITY-[facility] [place] - Billing Disposition and Condition Condition: STABLE Disposition: Psychiatric Facility [facility] [place] - Attestation Statements Document Initiated by Scribe: Yes Documenting Scribe: TIA JOSEPH Provider For Whom Scribe is Documenting (Include Credential): ANGELITO PIERRE, DO Scribe Attestation: TIA Kulkarni, scribed for ANGELITO PIERRE DO on 11/06/19 at 1002. Scribe Documentation Reviewed: Yes Provider Attestation: The documentation as recorded by the scribeTIA accurately reflects the service I personally performed and the decisions made by me, ANGELITO PIERRE DO Status of Scribe Document: Viewed
[2019-11-04 16:18] LABS: Hematocrit 42 % (35-47); Hemoglobin 14.3 g/dL (12.0-16.0); Mean Corpuscular HGB Conc 34 g/dL (31-36); Mean Corpuscular Hemoglobin 31 pg (27-31); Mean Corpuscular Volume 90 fL (80-97); Mean Platelet Volume 7.8 fL (7.4-10.4); Platelet Count 279 10^3/uL (150-450); Red Cell Distribution Width 15 % (10-15)
[2019-11-04 16:24] LABS: ABS Basophils 0.1 10^3/ul (0-0.2); ABS Eosinophils 0.1 10^3/ul (0-0.6); ABS Lymphocytes 2.4 10^3/ul (1.0-4.8); ABS Monocytes 0.9 10^3/ul (0-0.8); ABS Neutrophils 4.6 10^3/ul (1.5-7.7); Eosinophil % 1.1 %; Lymphocyte % 29.5 %; Nucleated Red Blood Cells % 0.2
[2019-11-04 16:59] LABS: ALT 10 U/L (7-52); Albumin/Globulin Ratio 1.4 (1-3); Alkaline Phosphatase 65 U/L (34-104); BUN/Creatinine Ratio 19.7 (8-20); Blood Urea Nitrogen 15 mg/dL (6-24); CO2 Carbon Dioxide 26 mmol/L (22-32); Calcium 9.6 mg/dL (8.6-10.3); Chloride 103 mmol/L (101-111); EGFR African American 94.3 (>60); EGFR Non-African American 77.9 (>60); Globulin 2.9 g/dL (2-4); Glucose 98 mg/dL (70-100); Sodium 139 mmol/L (135-145); Total Protein 6.9 g/dL (6.4-8.9)
[2019-11-04 17:17] LABS: Acetaminophen < 15 mcg/mL; Alcohol < 10 mg/dL (<10); Salicylate < 2.50 mg/dL (<30)
[2019-11-04 19:11] LABS: AST 17 U/L (13-39); Anion Gap 10 mmol/L (2-11)
--- NOTE | 2019-11-04 19:47 | ED ---
Progress - Progress Note Progress Note: The patient is a sign-out from Dr. Marvel Gutierrez DO, to Dr. Shikha Rutherford MD, at change of shift at 1900 on 11/04/19, pending psychiatric evaluation and disposition. Dr. Akbar and psychiatric team have evaluated the patient and determined admission is appropriate. Patient is agreeable on a voluntary status. Course/Dx - Diagnoses Provider Diagnoses: Suicidal ideation, Bipolar disorder Discharge ED - Sign-Out/Discharge Documenting (check all that apply): Patient Departure - Patient admitted on voluntary basis to [facility] Receiving Sign-Out Receiving patient FROM: Clive Gutierrez - Patient is a sign-out from Dr. Marvel Gutierrez DO, at change of shift at 1900 on 11/04/19, pending MHE and disposition. - Discharge Plan Condition: Stable [place] [place] Disposition and Condition Condition: STABLE Disposition: Psychiatric Facility [facility] - Attestation Statements Document Initiated by Scribe: Yes Documenting Scribe: Jo Ann Lo Provider For Whom Scribe is Documenting (Include Credential): Shikha Rutherford MD Scribe Attestation: IJo Ann, scribed for Shikha Rutherford MD on 11/04/19 at 2254. Scribe Documentation Reviewed: Yes Provider Attestation: The documentation as recorded by the Jo Ann ashton accurately reflects the service I personally performed and the decisions made by me, Shikha Rutherford MD Status of Scribe Document: Viewed Procedures - Sedation Patient Received Moderate/Deep Sedation with Procedure: No
[2019-11-04] MEDS ORDERED: Divalproex ER TAB(*) 500 MG PO ONE (20:45)
[2019-11-04] MEDS ORDERED: Mirtazapine TAB* 15 MG PO ONE (20:45)
[2019-11-04] MEDS ORDERED: Gabapentin CAP(*) 400 MG PO ONE (20:46)
[2019-11-04] MEDS ORDERED: Gabapentin CAP(*) 300 MG PO ONE (20:46)
[2019-11-05] MEDS ORDERED: Al Hydrox/Mg Hydrox/Simet LIQ* 30 ML UDC PO PRN (00:21)
[2019-11-05] MEDS: Acetaminophen TAB* 325 MG PO PRN ×2 (07:29→20:28)
[2019-11-05] MEDS: Vitamin THERAPEUTIC TAB PO SCH (07:29)
[2019-11-05] MEDS ORDERED: Albuterol HFA INHALER* 8 gm MDI INH PRN (09:49)
[2019-11-05] MEDS ORDERED: Venlafaxine EXT RELEASE CAP* 75 MG PO SCH (10:00)
--- NOTE | 2019-11-05 11:55 | PN ---
BSU: Group Therapy Note - Service Type Service Type: [id number] Group Psychotherapy - Cognitive Behavioral Group Therapy ( CBT):Patient was attentive and participatory in CBT programming this morning, and remained in good behavioral control. Patient expressed positive insights regarding relevant treatment interventions and goals.
[2019-11-05] MEDS: Gabapentin CAP(*) 400 MG PO SCH (11:58)
[2019-11-05] MEDS: Rivaroxaban TAB(*) 15 MG PO SCH (11:59)
[2019-11-05] MEDS: Cholecalciferol TAB* 1000 UNITS PO SCH (12:00)
[2019-11-05] MEDS: Metoprolol Succinate XL TAB* 50 MG PO SCH (12:00)
[2019-11-05] MEDS: Levothyroxine TAB* 50 MCG TAB PO SCH (12:01)
[2019-11-05] MEDS: Cyanocobalamin TAB* 500 MCG PO SCH (12:01)
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
[2019-11-05] MEDS ORDERED: Gabapentin CAP(*) 400 MG PO SCH (18:00)
[2019-11-05] MEDS ORDERED: Mirtazapine TAB* 15 MG PO SCH (21:00)
[2019-11-05] MEDS ORDERED: Divalproex ER TAB(*) 500 MG PO SCH (21:00)
[2019-11-06] MEDS: Levothyroxine TAB* 50 MCG TAB PO SCH (06:40)
[2019-11-06] MEDS: Acetaminophen TAB* 325 MG PO PRN (06:40)
[2019-11-06 08:13] LABS: HDL Cholesterol 44.6 mg/dL
[2019-11-06 08:54] VITALS: BP 113/95
[2019-11-06] MEDS ORDERED: Venlafaxine EXT RELEASE CAP* 75 MG PO SCH (09:00)
[2019-11-06] MEDS ORDERED: Influenza VAC *QUAD* 2019-20* 0.5 ML SYRINGE IM ONE (09:00)
[2019-11-06] MEDS: Gabapentin CAP(*) 400 MG PO SCH (09:24)
[2019-11-06] MEDS: Cyanocobalamin TAB* 500 MCG PO SCH (09:27)
[2019-11-06] MEDS: Cholecalciferol TAB* 1000 UNITS PO SCH (09:27)
[2019-11-06] MEDS: Vitamin THERAPEUTIC TAB PO SCH (09:27)
[2019-11-06] MEDS: Rivaroxaban TAB(*) 15 MG PO SCH (09:28)
[2019-11-06] MEDS: Metoprolol Succinate XL TAB* 50 MG PO SCH (09:28)
[2019-11-06 09:43] LABS: Urine Appearance Cloudy; Urine Bilirubin Negative (Negative); Urine Blood Negative (Negative); Urine Color Yellow; Urine Glucose Negative (Negative); Urine Ketones Trace (Negative); Urine Nitrite Negative (Negative); Urine Protein Negative (Negative); Urine Specific Gravity 1.027 (1.010-1.030); Urine Urobilinogen Negative (Negative)
[2019-11-06 09:47] LABS: Urine Bacteria Absent (Absent); Urine Red Blood Cell 1+(3-5/hpf) (Absent); Urine Squamous Epithelial Cell Present (Absent); Urine White Blood Cell 2+(11-20/hpf) (Absent)
[2019-11-06 10:01] LABS: Urine Benzodiazepine Screen None Detected (None Detect); Urine Opiates Screen None Detected (None Detect)
--- NOTE | 2019-11-09 11:07 | DS ---
DATE OF ADMISSION: 11/04/2019. DATE OF DISCHARGE: 11/06/2019. PROVIDER: Audrey Lin NP in Psychiatry. SUPERVISING PHYSICIAN: Dr. Rio Cardenas * (dictated by Audrey Lin NP). DISCHARGE DIAGNOSES: Bipolar disorder, borderline personality disorder. CONDITION AT THE TIME OF DISCHARGE: Improved. Psychiatrically cleared. Stable. Ne participated in groups and was social with peers. She is agreeable to discharge. She has done well here psychiatrically. We did increase her Effexor which she tolerated well and she will be attending [facility]. MENTAL STATUS EXAM: At the time of discharge, Ne is calm, cooperative, and makes good eye contact. She is alert and oriented times four. Her grooming is good. Her speech pace is normal. Her thought processes are logical. She is not psychotic or delusional. She denies AH, VH, SI and HI. Insight and judgment are fair. She is willing to follow-up and urged to see her therapist. DISCHARGE INSTRUCTIONS TO THE PATIENT: A. Medications: Albuterol inhaler, two puffs q.6 hours prn shortness of breath ; Arimidex 1 mg daily; vitamin D 1,000 units daily; vitamin B12 1,000 mcg daily ; Diclofenac 75 mg twice a day with meals; Depakote 2,000 mg at bedtime; Fluticasone Furoate (Ellipta) 200 mcg inhaled daily; Gabapentin 400 mg in the morning, 800 mg in the evening; Levothyroxine 50 mcg daily; Metoprolol 50 mg daily; Mirtazapine 30 mg at bedtime; [place]-3 fatty acids 1,000 mg daily; Xarelto 15 mg daily; Venlafaxine ER 150 mg daily. B. Diet: Regular. C. Activities: As tolerated. She is a nonsmoker. There are no studies pending at the time of discharge. D. Follow-up care: She has an appointment on 11/12/2019 at 11:00 a.m. with Beth Quinn. She also has an appointment with Nikole Jarvis on 2019 at 10:30. She will be followed up with by [facility] and she has an appointment with Vipul Garrett DO on 2019 at 1:40 p.m. E. Disposition: She is returning to her home in [place]. F. Substance abuse follow-up: Not indicated. HOSPITAL COURSE - PART A: Chief Complaint: "I'm having a hard time dealing with life." The patient is a 59-year-old, single, white female with a history of bipolar disorder and personality disorder who arrives to the hospital and is here on a voluntary status after stating that she wanted to come to the hospital for a long time due to multiple stressors and lack of coping strategies that are adequate. Ne states she moved to [place] about a [id number] ago. She has conflicts with her best friend's sister. Her best friend's name is Shalonda. The sister's name is Nandini. Apparently, Nandini states that she is always correct that she has been helping her, but is also essentially bossing her around. Ne acknowledges that other people have stated she is too dependent and that the irritations related to the pushback from Nandini and Shalonda have led to a buildup of frustration. Ne states "I tend to internalize, but if someone pushes my buttons...!" Ne describes the relationship with herself and Nandini as one that is fraught with temperamental spats. Ne states that aNndini always gets what Nandini wants and she states this in a rather childlike tone that is almost singsong and perhaps repeated from former experiences. Aside from the friend who lives near her, Shalonda, and the sister who lives in the same apartment complex, Nandini, she is dealing with the grief of her ex- boyfriend who was also a very good friend to her. He related to complications of lung cancer on 10/04/2018. She has a sister who has cancer, but Ne declared she did not want to speak with this sister, so she changed her phone number to reduce contact. She states her sister got angry because every time Ne became voluble, the sister asserted that she probably was not taking her medicines. She also is frustrated by a cousin named Fantasma who gave her a mattress that was infested with bed bugs. He then helped her with a second mattress which was not to her liking and she is frustrated that he has not helped her to return the mattress or replace it. Ne is experiencing symptoms of anxiety and depression such as sleep disruption, frequent crying, lack of energy, suicidal thoughts, and some distorted thinking about her role in what has been going on in her life. HOSPITAL COURSE - PART B: Psychiatric treatment was rendered. Ne was admitted to the Adult Behavioral Health Unit and placed on 15 minute checks for safety. She was safe on all checks. She did well on the unit and she went to groups. She stated they were very helpful. She interacted with peers well. She tolerated the increase in Effexor to 150 mg which was made due to her inability to manage coping and behaving in a way that led to depression that she could not tolerate. No other med changes were made. Ne was not eager to leave, although she was agreeable to leaving. She felt like she could use more time on the unit, but also acknowledged that she was not suicidal or homicidal and that she was not likely to harm herself. She also talked about the cat she needed to take care of and gave examples of resources she could use to stay busy (like getting a friend to take her to the grocery store to buy ken litter). She also acknowledged that her main stressors were things that were under her control, such as the level of connectedness to Nandini and Shalonda. She discussed methods that she could use to keep those two women more at arm's length and that it was in her power to do so. Ne's anxiety is reduced. Her sleep disruption at least here in the hospital was not noted. She cried less as the stay went on and she denied suicidal thoughts. She is improved. She is feeling more able to manage her life and is motivated to continue with the significant supports she has in the community. She is future oriented and ready to leave. AUDREY LIN, JEREMIAS [id number]/[facility] #: [id number] XUAN
== END 2019-11-06 16:05 | disposition home or self-care (01) | DRG 753 ==
LOC: ED 14:52 → BSU 19:30
PROVIDERS: ADMIT Psychiatry & Neurology Psychiatry; ATTEND Psychiatry & Neurology Psychiatry
PROC: GZHZZZZ Group Psychotherapy (ICD-10-PCS; principal; 2019-11-05)
DX: F31.9 Bipolar disorder, unspecified (principal); R45.851 Suicidal ideations; G40.89 Other seizures; I10 Essential (primary) hypertension; J45.909 Unspecified asthma, uncomplicated; K21.9 Gastro-esophageal reflux disease without esophagitis; M16.0 Bilateral primary osteoarthritis of hip; G43.909 Migraine, unspecified, not intractable, without status migrainosus; F41.9 Anxiety disorder, unspecified; F60.3 Borderline personality disorder; I89.0 Lymphedema, not elsewhere classified; E07.9 Disorder of thyroid, unspecified; Z85.3 Personal history of malignant neoplasm of breast; Z88.0 Allergy status to penicillin; Z88.2 Allergy status to sulfonamides; Z88.8 Allergy status to other drugs, medicaments and biological substances; Z88.1 Allergy status to other antibiotic agents; Z92.3 Personal history of irradiation; Z92.21 Personal history of antineoplastic chemotherapy; Z90.11 Acquired absence of right breast and nipple; Z79.890 Hormone replacement therapy; Z79.899 Other long term (current) drug therapy; Z79.51 Long term (current) use of inhaled steroids; Z79.01 Long term (current) use of anticoagulants
CPT/HCPCS: 36415; 80053; 80061; 80307; 80320; 80329; 81003; 81015; 83036; 84443; 85025; 87086; 90686; 90853; 99222; 99238; 99284; A9270-GY; G0480

== ENCOUNTER 2020-09-07 15:55 | Inpatient (IN) ==
[2020-09-07 17:10] LABS: Hematocrit 48 % (35-47); Hemoglobin 16.4 g/dL (12.0-16.0); Mean Corpuscular HGB Conc 34 g/dL (31-36); Mean Corpuscular Hemoglobin 32 pg (27-31); Mean Corpuscular Volume 93 fL (80-97); Mean Platelet Volume 7.9 fL (7.4-10.4); Platelet Count 191 10^3/uL (150-450); Red Blood Count 5.11 10^6 /uL (3.70-4.87); Red Cell Distribution Width 15 % (10-15); White Blood Count 7.9 10^3/uL (3.5-10.8)
[2020-09-07 17:34] LABS: ALT 12 U/L (7-52); AST 19 U/L (13-39); Albumin 4.7 g/dL (3.2-5.2); Albumin/Globulin Ratio 1.8 (1-3); Alkaline Phosphatase 64 U/L (34-104); Anion Gap 8 mmol/L (2-11); BUN/Creatinine Ratio 18.2 (8-20); Blood Urea Nitrogen 14 mg/dL (6-24); CO2 Carbon Dioxide 25 mmol/L (22-32); Chloride 105 mmol/L (101-111); EGFR African American 92.8 (>60); EGFR Non-African American 76.7 (>60); Globulin 2.6 g/dL (2-4); Glucose 101 mg/dL (70-100); Potassium 3.9 mmol/L (3.5-5.0); Sodium 138 mmol/L (135-145); Total Protein 7.3 g/dL (6.4-8.9)
[2020-09-07 17:41] LABS: Acetaminophen < 15 mcg/mL; Alcohol, S < 10 mg/dL (<10); Salicylate < 2.50 mg/dL (<30)
[2020-09-07 17:55] LABS: ABS Basophils 0.1 10^3/ul (0-0.2); ABS Eosinophils 0.1 10^3/ul (0-0.6); ABS Lymphocytes 2.4 10^3/ul (1.0-4.8); ABS Monocytes 0.8 10^3/ul (0-0.8); ABS Neutrophils 4.6 10^3/ul (1.5-7.7); Eosinophil % 0.7 %; Lymphocyte % 30.3 %; TSH Ultra Thyroid Stim Horm 3.94 mcIU/mL (0.34-5.60)
[2020-09-07] MEDS ORDERED: Albuterol HFA INHALER 8 gm MDI INH PRN (22:50)
[2020-09-07] MEDS ORDERED: Al Hydrox/Mg Hydrox/Simet LIQ 30 ML UDC PO PRN (22:56)
[2020-09-08] MEDS ORDERED: Diclofenac Sod EC 25 mg TAB PO SCH (08:00)
[2020-09-08] MEDS: CMC:Anastrozole 1 mg TAB (NF) PO SCH (08:40)
[2020-09-08] MEDS: Vitamin THERAPEUTIC TAB PO SCH (08:41)
[2020-09-08] MEDS: Venlafaxine XR 75 mg PO SCH (08:41)
[2020-09-08] MEDS: OMEGA-3 FATTY ACID 1000 mg(NF) PO SCH (08:42)
[2020-09-08] MEDS: Cholecalciferol (VIT D3) 1,000 unit TAB PO SCH (08:42)
[2020-09-08] MEDS: Mometasone 220 MCG MDI INH SCH ×2 (08:44→20:38)
[2020-09-08] MEDS ORDERED: Diclofenac 1% GEL (NF) 100 GM TUBE TOPICAL PRN (10:38)
[2020-09-09] MEDS: Vitamin THERAPEUTIC TAB PO SCH (08:04)
[2020-09-09] MEDS: Venlafaxine XR 75 mg PO SCH (08:04)
[2020-09-09] MEDS: Cholecalciferol (VIT D3) 1,000 unit TAB PO SCH (08:05)
[2020-09-09 08:51] LABS: HDL Cholesterol 44.6 mg/dL
[2020-09-09] MEDS ORDERED: Influenza VAC *QUAD* 2020-21* 0.5 ML SYRINGE IM ONE (09:00)
[2020-09-09] MEDS: Mometasone 220 MCG MDI INH SCH ×2 (12:59→20:36)
[2020-09-09] MEDS: OMEGA-3 FATTY ACID 1000 mg(NF) PO SCH (13:00)
[2020-09-09] MEDS: CMC:Anastrozole 1 mg TAB (NF) PO SCH (13:01)
[2020-09-10] MEDS: Cholecalciferol (VIT D3) 1,000 unit TAB PO SCH (08:57)
[2020-09-10] MEDS: CMC:Anastrozole 1 mg TAB (NF) PO SCH (08:59)
[2020-09-10] MEDS: Mometasone 220 MCG MDI INH SCH ×2 (09:01→21:03)
[2020-09-10] MEDS: OMEGA-3 FATTY ACID 1000 mg(NF) PO SCH (09:06)
[2020-09-10] MEDS: Vitamin THERAPEUTIC TAB PO SCH (09:14)
[2020-09-10] MEDS: Venlafaxine XR 75 mg PO SCH (09:14)
[2020-09-11] MEDS: Cholecalciferol (VIT D3) 1,000 unit TAB PO SCH (08:40)
[2020-09-11] MEDS: CMC:Anastrozole 1 mg TAB (NF) PO SCH (08:40)
[2020-09-11] MEDS: OMEGA-3 FATTY ACID 1000 mg(NF) PO SCH (08:44)
[2020-09-11] MEDS: Mometasone 220 MCG MDI INH SCH ×2 (08:44→19:50)
[2020-09-11] MEDS: Venlafaxine XR 75 mg PO SCH (08:44)
[2020-09-11] MEDS: Vitamin THERAPEUTIC TAB PO SCH (08:45)
[2020-09-12 09:05] VITALS: BP 123/71
[2020-09-12] MEDS: OMEGA-3 FATTY ACID 1000 mg(NF) PO SCH (09:12)
[2020-09-12] MEDS: Cholecalciferol (VIT D3) 1,000 unit TAB PO SCH (09:13)
[2020-09-12] MEDS: Venlafaxine XR 75 mg PO SCH (09:14)
[2020-09-12] MEDS: Vitamin THERAPEUTIC TAB PO SCH (09:16)
[2020-09-12] MEDS: Mometasone 220 MCG MDI INH SCH (09:17)
[2020-09-12] MEDS: CMC:Anastrozole 1 mg TAB (NF) PO SCH (09:36)
== END 2020-09-12 14:30 | disposition home or self-care (01) | DRG 752 ==
LOC: ED 15:55 → BSU 19:11
PROVIDERS: ADMIT Psychiatry & Neurology Psychiatry; ATTEND Psychiatry & Neurology Psychiatry